=== PATIENT | male | born 1960 | race Caucasian/White ===

== ENCOUNTER 2022-08-09 13:33 | Observation (INO) | payer MEDICARE, SELFPAY ==
[2022-08-09] VITALS (10 sets, daily range): BP systolic 154–201; BP diastolic 84–115; PULSE 71–102; RESP 14–24; TEMP 36.6–36.9; O2SAT 93–98; BMI 29.2
--- NOTE | 2022-08-09 13:42 | ECG_ITS ---
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 Measurements Intervals [place] Rate: 84 P: 46 KS: 150 QRS: 46 QRSD: 152 T: -5 QT: 404 QTc: 479 Interpretive Statements SINUS RHYTHM POSSIBLE LEFT ATRIAL ENLARGEMENT [-0.1mV P-WAVE IN V1/V2] INDETERMINATE AXIS RIGHT BUNDLE BRANCH BLOCK [120+ ms QRS DURATION, UPRIGHT V1, 40+ ms S IN I/aVL/V4/V5/V6] Compared to ECG 01/31/2015 10:48:32 Indeterminate axis now present Right bundle-branch block now present Electronically Signed On 08-09-2022 20:24:14 CDT by Rubi Juan M.D. [id number] f
--- NOTE | 2022-08-09 14:00 | PC.NURSE ---
Pt has not taken his BP meds in 3-4 days, he got pain in the center of his chest after working in the yard today
--- NOTE | 2022-08-09 14:09 | W.ED.CHESTPA ---
HPI - Chest Pain General: Chief Complaint: Chest Pain Stated Complaint: Chest Pain Time Seen by Provider: 08/09/22 13:41 Source: patient and family Mode of arrival: EMS History of Present Illness: This patient presents to our emergency department because of chest pain symptoms. He states that chest pain symptoms began today earlier today. He states they were central in nature with some radiation to his left arm. Similar but much less than that he is experienced in the past. He relates he has had 2 prior episodes of chest pain that resulted in stent placement the last greater than 4 years ago. He states he has been symptom-free up until today. He states his symptoms have now improved after nitroglycerin that was administered prior to arrival. He also received 324 mg of aspirin prior to arrival. He still smokes tobacco but denies alcohol use. He denies any recent cough fever or other constitutional complaints. He states that he has been out of his usual medications since Sunday. He apparently attempted to refill his medicines and was told he needed to follow-up with his doctor which he is not arranged at this point. MD complaint: chest pain Pertinent past history: coronary artery disease Associated symptoms: Reports dyspnea; Deny abdominal pain, fever(s), nausea, palpitations, syncope or vomiting Risk Factors: Coronary artery disease risk factors: smoking history and hypertension Review of Systems Const: Denies: fever(s) or chills Eyes: Denies: change in vision ENMT: Denies: throat pain, odynophagia, hoarseness, nasal discharge or nasal congestion Card: Denies: palpitations, syncope or pre-syncope Resp: Reports: dyspnea; Denies: productive cough or non-productive cough GI: Denies: abdominal pain, nausea, vomiting or hematemesis : Denies: flank pain, difficulty urinating or dysuria Musc: Denies: neck pain, back pain, extremity pain or extremity swelling Skin/Breast: Denies: rash, pruritus or erythema Neuro: Denies: headache(s), numbness in extremities, weakness in extremities, Slurred speech present or difficulty communicating thoughts Psych: Denies: anxiety, depression or mood swings Endo: Denies: polyuria, polydipsia or tired all the time Johann/Lymph: Denies: easy bruising All/Imm: Denies: urticaria or throat swelling Physical Exam Narrative: EXAM NARRATIVE: Patient is alert cooperative and appears to be in no acute distress. Const: COMMON NORMALS: no acute distress and patient oriented x3 GENERAL APPEARANCE: cooperative and comfortable HENMT: COMMON NORMALS: normocephalic, Normal nasal mucous membranes and turbinates present, moist oral mucous membranes and oropharynx normal HEAD & SCALP: normocephalic FACE & SINUS: normal facial exam NOSE: Normal nasal mucous membranes and turbinates present Eye: COMMON NORMALS: Equal, round and reactive pupils present, EOMs intact bilaterally and conjunctivae normal CONJUNCTIVA: Yes conjunctivae normal PUPIL: Yes Equal, round and reactive pupils present Neck/C-Spine: COMMON NORMALS: full ROM, no lymphadenopathy and No carotid bruits Chest: COMMONS NORMALS: normal inspection of the chest and normal palpation of entire chest wall Resp: COMMON NORMALS: normal respiratory effort, No retractions, No use of accessory muscles and clear to auscultation bilaterally AUSCULTATION: clear to auscultation bilaterally Cardio: COMMON NORMALS: regular rate, regular rhythm and No murmurs present (Cardio) RATE: regular rate RHYTHM: regular rhythm GI: COMMON NORMALS: Normal to inspection, nondistended, normoactive bowel sounds present, Soft to palpation and non-tender PALPATION: Yes Soft to palpation : COMMON NORMALS: Yes no CVA tenderness BLADDER/KIDNEY EXAM: Yes no CVA tenderness Back/Pelvis: COMMON NORMALS: no CVA tenderness, thoracic and lumbar spine normal to inspection and no thoracic nor lumbar tenderness Extremity: COMMON NORMALS: normal to inspection, full ROM, capillary refill normal and no calf tenderness Neuro: COMMON NORMALS: patient oriented x3, moves all extremities, no focal motor deficits and gait normal CRANIAL NERVES: Yes CN normal except as noted SPEECH: speech normal Psych: COMMON NORMALS: mental status grossly normal Skin: COMMON NORMALS: no rashes or lesions noted and turgor normal GENERAL SKIN EXAM: no rashes or lesions noted and turgor normal Course Reevaluation(s): Reevaluation #1: Patient denies any ongoing chest pain at this time. His delta troponin has doubled. He has no evidence of ongoing ischemic changes on his EKG. It appears that he has potential for ACS and I think warrants placement and observation. Will discuss with cardiology as well the hospitalist. Time: 18:17 Consultations: Consultation #1: Kelly with Dr. Darden on-call motor vehicle light assembler who agreed to consult and made some treatment recommendations. Time: 19:08 Consultation #2: Discussed with Dr. Cook who agreed to admission. Time: 19:11 Vital Signs: Vital signs: Vital Signs Temperature 97.8 F 08/09/22 13:39 Pulse Rate 75 08/09/22 18:31 Respiratory Rate 14 08/09/22 18:31 Blood Pressure 173/89 08/09/22 18:31 Pulse Oximetry 95 08/09/22 18:31 Oxygen Delivery Me thod 08/09/22 13:57 MDM - Chest Pain Medical Decision Making Patient with known coronary disease who presented to the emergency department with chest pain that was similar to but less intense than his previous chest pains he has had with stents placed the last being greater than 4 years ago. Of note that he was initially hypertensive on arrival likely related the fact he has been out of his antihypertensives for the last several days. On evaluation here he was found to be clinically stable albeit hypertensive and after evaluation was noted to have a rising high-sensitivity troponin. He did remain pain-free. Because of the rising troponin, history of coronary disease it was felt that he would be best served by placing in the hospital for further evaluation of acute coronary syndrome. Lab Data I reviewed the patient's lab results. : 08/09/22 15:00 08/09/22 15:00 Radiology Impressions Chest X-Ray 08/09/22 14:53 Impression: Atherosclerosis. Laboratory Results WBC 7.9 10^3/uL (4.0-10.0) 08/09/22 15:00 RBC 4.78 10^6/uL (4.1-5.3) 08/09/22 15:00 Hgb 14.5 g/dL (11.7-16.6) 08/09/22 15:00 Hct 42.0 % (42.0-52.0) 08/09/22 15:00 MCV 87.9 fl (80-94) 08/09/22 15:00 MCH 30.3 pg (28.0-34.0) 08/09/22 15:00 MCHC 34.5 g/dL (30.0-36.0) 08/09/22 15:00 RDW 13.4 % (12.1-15.1) 08/09/22 15:00 Plt Count 225 10^3/cmm (130-400) 08/09/22 15:00 MPV 10.7 fL (7.4-10.4) H 08/09/22 15:00 Neut % (Auto) 71.6 % 08/09/22 15:00 Lymph % (Auto) 18.2 % 08/09/22 15:00 Ransom % (Auto) 7.1 % 08/09/22 15:00 Eos % (Auto) 2.4 % 08/09/22 15:00 Baso % (Auto) 0.6 % 08/09/22 15:00 Neut # (Auto) 5.62 10^3/uL (1.8-7.7) 08/09/22 15:00 Lymph # (Auto) 1.4 10^3/uL (0.8-4.8) 08/09/22 15:00 Ransom # (Auto) 0.6 10^3/uL (0.2-0.9) 08/09/22 15:00 Eos # (Auto) 0.2 10^3/uL (0.0-0.8) 08/09/22 15:00 Baso # (Auto) 0.1 10^3/uL (0.0-0.1) 08/09/22 15:00 Nucleated RBC % (auto) 0 % 08/09/22 15:00 Nucleated RBCs # 0.0 /100WBC 08/09/22 15:00 Sodium 139 mmol/L (136-145) 08/09/22 15:00 Potassium 3.9 mmol/L (3.5-5.1) 08/09/22 15:00 Chloride 103 mmol/L (98-107) 08/09/22 15:00 Carbon Dioxide 27 mmol/L (22-29) 08/09/22 15:00 Anion Gap 12.9 (5-19) 08/09/22 15:00 BUN 17 mg/dL (8-23) 08/09/22 15:00 Creatinine 1.1 mg/dL (0.7-1.2) 08/09/22 15:00 GFR Calculation 67.6 mL/min (90-130) L 08/09/22 15:00 Glucose 82 mg/dL (65-115) 08/09/22 15:00 Calculated Osmolality 289 mOsm/kg (285-295) 08/09/22 15:00 Calcium 9.0 mg/dL (8.5-10.5) 08/09/22 15:00 Total Bilirubin 0.2 mg/dL (0.15-1.2) 08/09/22 15:00 AST 17 U/L (0-40) 08/09/22 15:00 ALT 13 U/L (0-41) 08/09/22 15:00 Alkaline Phosphatase 56 U/L (40-130) 08/09/22 15:00 Troponin T Baseline 31 ng/L (0-15) H 08/09/22 15:00 Troponin T 120 Minute 55.09 ng/L (0-15) H 08/09/22 16:49 Delta Troponin T 24.09 ABS# (0-10) H* 08/09/22 16:49 Total Protein 5.8 g/dL (6.6-8.7) L 08/09/22 15:00 Albumin 3.2 g/dL (3.5-5.2) L 08/09/22 15:00 Globulin 2.6 g/dL (1.3-4.6) 08/09/22 15:00 EKG Data EKG 1: I personally reviewed and interpreted this EKG as follows: Interpretation: Initial resting EKG reveals ventricular rate of 84 bpm. Has normal MN interval QRS duration and QTC duration. His QRS is appearance consistent with a right bundle branch block. No acute ST-T wave changes noted at this time.No prior tracings available within our system. EKG 2: I personally reviewed and interpreted this EKG as follows: Interpretation: EKG #2 this visit reveals ventricular rate of 73 bpm with normal MN interval normal QRS duration and QTc interval. Still has QRS is consistent with a right bundle branch block without any evidence of acute change from prior tracing. Discharge Plan Discharge Patient Disposition: Placed in Observation Clinical Impression: ACS (acute coronary syndrome), Chronic hypertension Coding Level of Care Code ED Nurse Assistant for Samg Fwd Exam Comprehensive
--- NOTE | 2022-08-09 14:53 | XR_ITS ---
WS: [id number] Portable AP upright chest, 08/09/2022 Clinical Data: cp Comparison: PA and lateral chest, 01/31/2015. Findings: No nodules, masses or effusions are seen. The heart is normal. The pulmonary vascularity is not increased. No pneumonia or pneumothorax is seen. The aortic arch and descending thoracic aorta s how mild tortuosity. There are monitor leads on the chest wall. XR/XR chest 1V portable [id number] Impression: Atherosclerosis.
[2022-08-09 15:05] LABS: Basophils # 0.1 10^3/uL (0.0-0.1); Basophils % 0.6 %; Eosinophils # 0.2 10^3/uL (0.0-0.8); Eosinophils % 2.4 %; Hemoglobin 14.5 g/dL (11.7-16.6); Lymphocytes # 1.4 10^3/uL (0.8-4.8); Lymphocytes % 18.2 %; Mean Corpuscular HGB Conc 34.5 g/dL (30.0-36.0); Mean Corpuscular Hemoglobin 30.3 pg (28.0-34.0); Mean Corpuscular Volume 87.9 fl (80-94); Mean Platelet Volume 10.7 fL (7.4-10.4); Monocytes # 0.6 10^3/uL (0.2-0.9); Monocytes % 7.1 %; Neutrophils # 5.62 10^3/uL (1.8-7.7); Neutrophils % 71.6 %; Nucleated Red Blood Cells % 0 %; Platelet Count 225 10^3/cmm (130-400); Red Blood Count 4.78 10^6/uL (4.1-5.3); Red Cell Distribution Width 13.4 % (12.1-15.1); White Blood Count 7.9 10^3/uL (4.0-10.0)
[2022-08-09 15:30] LABS: Alanine Aminotransferase 13 U/L (0-41); Albumin Level 3.2 g/dL (3.5-5.2); Alkaline Phosphatase 56 U/L (40-130); Anion Gap 12.9 (5-19); Aspartate Amino Transferase 17 U/L (0-40); Blood Urea Nitrogen 17 mg/dL (8-23); Carbon Dioxide 27 mmol/L (22-29); Chloride 103 mmol/L (98-107); Globulin 2.6 g/dL (1.3-4.6); Glomerular Filtration Rate 67.6 mL/min (90-130); Glucose 82 mg/dL (65-115); Osmolality Calculated 289 mOsm/kg (285-295); Potassium 3.9 mmol/L (3.5-5.1); Sodium 139 mmol/L (136-145); Total Bilirubin 0.2 mg/dL (0.15-1.2); Total Protein 5.8 g/dL (6.6-8.7)
[2022-08-09 15:31] LABS: Troponin(5th) Baseline 31 ng/L (0-15)
--- NOTE | 2022-08-09 17:07 | ECG_ITS ---
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 Measurements Intervals [place] Rate: 73 P: 38 FL: 163 QRS: -47 QRSD: 156 T: -15 QT: 426 QTc: 470 Interpretive Statements SINUS RHYTHM INDETERMINATE AXIS RIGHT BUNDLE BRANCH BLOCK Compared to ECG 08/09/2022 13:42:33 No significant changes Electronically Signed On 08-09-2022 20:36:04 CDT by Rubi Juan M.D. [id number]
[2022-08-09 17:44] LABS: Troponin 5 2HR 55.09 ng/L (0-15)
[2022-08-09 18:04] LABS: Troponin 5 2HR Delta 24.09 ABS# (0-10)
--- NOTE | 2022-08-09 19:14 | USCV_ITS ---
Kevin Griffin Age: 62 Gender: M : 1960 Exam Date: 08/09/2022 22:47 Ordering Phys: Clint Kramer DO Technologist: SHAYLEE [place] [facility] [place]: ACS. History of CAD s/p cardiac stenting 2007, 2009. Hx NSTEMI 2009 BP: 198 / 108 HR: 90 Rhythm: Sinus but irregular Technical Quality: Adequate MEASUREMENTS (Male / Female) Normal Values 2D ECHO LV Diastolic Diameter PLAX 4.0 cm 4.2 - 5.9 / 3.9 - 5.3 cm LV Systolic Diameter PLAX 2.8 cm IVS Diastolic Thickness 1.7 cm 0.6 - 1.0 / 0.6 - 0.9 cm IVS Systolic Thickness 1.7 cm LVPW Diastolic Thickness 1.7 cm 0.6 - 1.0 / 0.6 - 0.9 cm LVPW Systolic Thickness 1.7 cm LVOT Diameter 2.4 cm LV Ejection Fraction 2D Teich 57.9 % LV Ejection Fraction MOD 2C 54.4 % LV Ejection Fraction 2C AL 60.0 % LA Diameter 3.7 cm LA Width 3.9 cm LA Height 5.7 cm RA Width 3.9 cm RA Height 4.0 cm Aorta at Sinotubular Diameter 3.0 cm IVC Diameter 1.6 cm M-MODE Aortic Annulus Diameter 3.0 cm LA Ao Ratio MM 1.2 MV E Point Septal Separation 0.4 cm DOPPLER AV Peak Velocity 118.0 cm/s LVOT Peak Velocity 83.0 cm/s AV Area Cont Eq vti 4.2 cm squared AV Area Cont Eq pk 3.1 cm squared MV Peak Velocity 120.0 cm/s MV Area PHT 2.5 cm squared Mitral E to A Ratio 0.7 MV E' Velocity 46.5 cm/s Mitral E to MV E' Ratio 12.1 Mitral E to LV E' Lateral Ratio 14.5 Mitral E to LV E' Septal Ratio 10.5 TR Peak Velocity 234.3 cm/s TR Peak Gradient 22.0 mmHg TV Peak E Velocity 57.0 cm/s Right Atrial Pressure 5.0 mmHg Pulmonary Artery Systolic Pressu 27.0 mmHg PV Peak Velocity 131.0 cm/s RV Acceleration Time 0.1 s RV Ejection Time 0.3 s RV AcT/ET 0.2 FINDINGS Left Ventricle Normal left ventricular size and systolic function, EF 60 %. Moderate left ventricular hypertrophy. Grade I/IV diastolic dysfunction (abnormal relaxation filling pattern), normal to mildly elevated filling pressures. Dyskinetic basal inferior wall segment Right Ventricle The right ventricle is normal in size and function. Right Atrium The right atrium is normal in size. Left Atrium The left atrium is normal in size. Mitral Valve Thickened mitral valve. Mild mitral annular calcification. Mild mitral valve regurgitation. Aortic Valve Thickened aortic valve. Tricuspid Valve Trace tricuspid valve regurgitation. Pulmonic Valve No gross abnormalities noted Pericardium Normal pericardium without effusion. Aorta Normal aortic annulus size. IVC Normal inferior vena cava. CONCLUSIONS Normal left ventricular size and systolic function, EF 60 %. Moderate left ventricular hypertrophy. Grade I/IV diastolic dysfunction (abnormal relaxation filling pattern), normal to mildly elevated filling pressures. Dyskinetic basal inferior wall segment. Thickened mitral valve. Mild mitral annular calcification. Mild mitral valve regurgitation. Thickened aortic valve. Trace tricuspid valve regurgitation. There is no pericardial effusion. There are no intracardiac masses. No previous study is available for comparison. Dr Demond Darden MD FACC (Electronically Signed) Final Date: 10 August 2022 07:30 S
[2022-08-09] MEDS: clopidogrel 300 mg Tablet PO (20:22)
[2022-08-09] MEDS: amlodipine 10 mg Tablet PO (20:22)
--- NOTE | 2022-08-09 20:29 | P.CONIM_ITS ---
Providers/Reason For Consult Consulting Physician/Specialty*: LADONNA Darden MD/cardiology Reason for Consult*: Patient with chest pain and elevated troponin T Requesting Physician: Dr. Byrne Attending Physician: Dr. Byrne History of Present Illness History of Present Illness Kevin Griffin is a 62 year old male with a history of coronary artery disease, status post myocardial infarction x2, status post PCI, is presenting with complaints of a prolonged episode of chest pain. He was found to have elevated blood pressure and troponin T. Cardiology consult is requested for further ca ia evaluation recommendations. This patient is known to have atherosclerotic heart disease and had 2 myocardial infarction's in the past. He had a angiogram followed by PCI of the circumflex artery in 2009. In September 2012, he presented with unstable anginal symptoms. At that time, he had a repeat angiogram which revealed patent circumflex artery stent with a high-grade lesion in the mid RCA for which he underwent PCI. According the patient, he been doing okay since then with no recurrence of chest pain or any specific cardiac symptoms. 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 While being there, he had a CVA. [facility], he had an intracerebral bleed from? an aneurysm. However he did not have any aneurysm intervention, as far as the patient can remember. He was told that he may never be able to walk again. He had weakness of the left upper and lower extremity. However after the rehab exercise, he gained almost full function of the right right upper extremity. He has some weakness of the right lower extremity. He also has some cognitive impairment. He has a history of high blood pressure and dyslipidemia. He ran out of all his medications 4 days ago. He was supposed to call his primary care doctor's office, which has not been done yet. He continues to smoke half pack a day and has been smoking for the last 40+ years. No alcohol abuse or any other substance abuse. He started having chest pain around 1245 today. He took 1 sublingual nitro which gave him some relief. Because of the persistence of the pain, he called the ambulance. He was given 1 sublingual nitro spray and 4 baby aspirin in the ambulance. The intensity of the pain came down from 7/10 to 4/10. He was given 8/3 nitro in the ambulance. His chest pain completely resolved in the emergency room. It took almost 3 hours for the symptoms to completely subside. At the time of my examination, patient is pain-free. According him, this is the first time that he has the chest pain since his last PCI in 2011. He came back to [place] approximately 3 years ago. He is lives alone. He has a sister who lives nearby. He has 2 children and they live somewhere else. Review of Systems Narrative: CONSTITUTIONAL: No fever or chills. EYES: No blurring of vision or other visual disturbances lately. ENT: No hoarseness of voice, auditory disturbances or sore throat. CARDIOVASCULAR: As mentioned above. RESPIRATORY: No significant cough. GASTROINTESTINAL: No hematemesis or melena. GENITOURINARY: No dysuria or hematuria. INTEGUMENTARY: No skin rashes or history of skin cancer. NEURO: As mentioned above. History of hemorrhagic CVA. Residual right lower extremity weakness and cognitive dysfunction. PSYCHIATRIC: No history of psychosis or major depression. HEMATOLOGIC: No bleeding disorders or significant anemia. ENDOCRINE: No history of polyuria or polydipsia. MUSCULOSKELETAL: No recent joint pain or swelling. ALLERGY/IMMUNOLOGY: As mentioned above. Medications/Allergies Home Medications Medication Instructions Recorded Confirmed Last Taken Type amlodipine 10 mg tablet 10 mg PO DAILY@182908/09/22 08/09/22 08/04/22 History aspirin 81 mg tablet,delayed 81 mg PO DAILY@182908/09/22 08/09/22 3 Days Ago History release ~08/06/22 atorvastatin 80 mg tablet (Lipitor) 80 mg PO DAILY@182908/09/22 08/09/22 Unknown History hydrochlorothiazide 25 mg tablet 25 mg PO DAILY@182908/09/22 08/09/22 Unknown History lisinopril 40 mg tablet 40 mg PO DAILY@182908/09/22 08/09/22 Unknown History Allergies Allergy/AdvReac Type Severity Reaction Status Date / Time No Known Allergies Allergy Verified 08/09/22 14:12 PFSH Acute PFSH: Medical History History of coronary artery disease History of hypertension Surgical History History of heart artery stent Social History Smoking and tobacco status: current every day smoker Alcohol intake: never Substance/Drug Use: never Vitals/I&O/Wt Last Vital Signs Temp 97.8 F 08/09/22 13:39 Pulse 75 08/09/22 18:31 Resp 14 08/09/22 18:31 BP 173/89 08/09/22 18:31 Pulse Ox 95 08/09/22 18:31 O2 Del Method 08/09/22 13:57 Weight last 48 hrs Weight 181 lb Physical Exam Narrative: GENERAL: The patient is alert and oriented times three. Not in any acute distress. HEENT: No significant pallor, icterus or lymphadenopathy.Oral cavity: There are no mucous membrane lesions. The fundus is not visualized NECK: Trachea appears to be central. No masses noted. No JVD or thyromegaly appreciated. RESPIRATORY: Chest is symmetrical. No intercostals muscle retraction or any accessory muscle activation. There is no chest wall tenderness. Breath sounds a re heard bilaterally. No rales or rhonchi heard. No evidence of any consolidation. BREASTS: Deferred. HEART: The heart sounds are normal. No S3 or S4. No significant murmurs. No pericardial rub ABDOMEN: No vessel pulsations or distention. No tenderness. No organomegaly appreciated. Bowel sounds are normally heard. : Deferred. RECTAL: Deferred. LYMPHATIC: No lymphadenopathy noted in the neck. EXTREMITIES: No edema or cyanosis. No clubbing. MUSCULOSKELETAL: No acute joint deformities or swelling SKIN: There are no significant rashes or ecchymosis NEUROPSYCHIATRIC: The patient is alert and oriented x3. Appears to be in a good mood. No tremors or rigidity noted. Data : 08/09/22 15:00 08/09/22 15:00 EKG 1: My Interpretation: Normal sinus rhythm with a rate of 73 bpm. Right bundle branch block pattern. Nonspecific T wave changes in the inferior leads. EKG computer-generated impression: Chest X-Ray 08/09/22 14:53 Atherosclerotic changes in the aorta Normal cardiac silhouette. No lung infiltrates. No acute pathology noted. A&P Assessment and plan (1) Atherosclerotic heart disease of [place] coronary artery with unstable angina pectoris: Patient's symptoms also history of an unstable angina complicated with a non-ST elevation myocardial infarction. Currently he seems to be stable and pain-free. The EKG changes are nonspecific. His LV function is not known. He may be treated with the subcu Lovenox, aspirin, Plavix and onli-cwz-ozjsgcg medications. Status: Acute (2) Accelerated hypertension: His blood pressures are stage II. He may be restarted on his previous medications. I may add a beta-katelin to his current medications. He needs to be closely monitored on telemetry. Status: Acute (3) Dyslipidemia: May continue on the current medications. Status: Acute (4) History of cerebrovascular accident (CVA) with residual deficit: The details of the intracerebral bleed is not known at this time. According the patient, he had an aneurysm. Possibility of recurrence of CVA is a concern. This was discussed with the patient and his sister in detail which he understood well. A CTA of the head would be appropriate to evaluate for any aneurysm. Consider starting him on Lovenox after the CTA. He may be treated with the Plavix, aspirin and other symptomatic measures for the time being. Status: Acute Plan Based on the results of the above tests and the patient's clinical progress, further recommendations will be made. Thank you for the opportunity to follow this patient make these recommendations. Discussed with Dr. Byrne about my complete clinical impression and recommendations. Consult Attestations Medical Necessity Statement: Patient requires continued hospital stay for close monitoring and further management Coding Level of Care Code Acute Director Account Management for Luther Shea History Detailed Exam Detailed Medical Decision Making High Complexity Diagnoses Atherosclerotic heart disease of [place] coronary artery with unstable angina pectoris I25.110 Accelerated hypertension I10 Dyslipidemia E78.5 History of cerebrovascular accident (CVA) with residual deficit I69.30
--- NOTE | 2022-08-09 20:47 | P.HP_ITS ---
Providers/Chief Complaint Chief Complaint: Chest Pain History of Present Illness Kevin Griffin is a 62 year old male with a past medical history of hypertension, CAD, history of stent to left circumflex, history of stent to RCA, who has not taken his medication for the last few days, as he was out of them, presents to [facility] for chest pain. Patient with chest pain today, s ubsternal, radiating to the left arm, he has had 2 episodes of chest pain, associate with shortness of breath, nonradiating, no nausea, no vomiting. He denies any prior history of chest pain, he does take aspirin 81 mg once daily. Does report smoking. No drug use. Review of Systems Const: Denies: fever(s) Card: Reports: chest pain Resp: Denies: dyspnea Medications/Allergies Home Medications Medication Instructions Recorded Confirmed Last Taken Type amlodipine 10 mg tablet 10 mg PO DAILY@182908/09/22 08/09/22 08/04/22 History aspirin 81 mg tablet,delayed 81 mg PO DAILY@182908/09/22 08/09/22 3 Days Ago History release ~08/06/22 atorvastatin 80 mg tablet (Lipitor) 80 mg PO DAILY@182908/09/22 08/09/22 Unknown History hydrochlorothiazide 25 mg tablet 25 mg PO DAILY@182908/09/22 08/09/22 Unknown History lisinopril 40 mg tablet 40 mg PO DAILY@182908/09/22 08/09/22 Unknown History Allergies Allergy/AdvReac Type Severity Reaction Status Date / Time No Known Allergies Allergy Verified 08/09/22 14:12 PFSH Acute PFSH: Medical History (Updated 08/09/22 @ 20:50 by Og Byrne MD) History of coronary artery disease History of hypertension Surgical History (Updated 08/09/22 @ 20:50 by Og Byrne MD) History of heart artery stent Social History (Updated 08/09/22 @ 20:50 by Og Byrne MD) Smoking and tobacco status: current every day smoker Alcohol intake: never Substance/Drug Use: never Vitals/I&O/Wt Last Vital Signs Temp 97.8 F 08/09/22 13:39 Pulse 75 08/09/22 18:31 Resp 14 08/09/22 18:31 BP 173/89 08/09/22 18:31 Pulse Ox 95 08/09/22 18:31 O2 Del Method 08/09/22 13:57 Weight last 48 hrs Weight 82.1 kg Physical Exam Const: COMMON NORMALS: no acute distress and patient oriented x3 HENMT: COMMON NORMALS: normocephalic HEAD & SCALP: normocephalic Neck/C-Spine: COMMON NORMALS: no JVD Resp: COMMON NORMALS: normal respiratory effort, No retractions, No use of accessory muscles and clear to auscultation bilaterally AUSCULTATION: clear to auscultation bilaterally Cardio: COMMON NORMALS: no JVD, regular rate, regular rhythm, S1 normal heart sound present and S2 normal heart sound present RATE: regular rate RHYTHM: regular rhythm HEART SOUNDS: S1 normal heart sound present and S2 normal heart sound present GI: COMMON NORMALS: Normal to inspection, nondistended, normoactive bowel sounds present, Soft to palpation, non-tender, No hepatosplenomegaly present, no masses and no bruits PALPATION: Yes Soft to palpation and Yes No hepatosplenomegaly present Extremity: COMMON NORMALS: capillary refill normal, no clubbing, cyanosis or edema, no calf tenderness and no pedal edema Neuro: COMMON NORMALS: patient oriented x3, CN's II-XII intact bilaterally and moves all extremities Psych: COMMON NORMALS: mental status grossly normal Data : 08/09/22 15:00 08/09/22 15:00 A&P Assessment and plan (1) ACS (acute coronary syndrome): Status: Acute Plan Chest pain -With positive delta troponin -Serial EKGs closer towards, telemetry monitoring -Will be consulted, Dr. Darden to see -Received 325 prior to arrival, received Plavix here in the emergency room -Cardiac echo -Nitroglycerin for chest pain -Continue Coreg -Telemetry monitoring, monitor for chest pain -N.p.o. midnight -Lovenox for DVT prophylaxis Attestations Medical Necessity Statement*: Patient requires hospitalization, outpatient observation, for chest pain Coding Level of Care Code Acute Montessori Lead Teacher for Luther Shea Diagnoses ACS (acute coronary syndrome) I24.9
--- NOTE | 2022-08-09 20:53 | ECG_ITS ---
[facility] Test Date: 2022-08-09 Pat Name: Kevin Griffin Department: Room: Gender: Male Casino Host: : 1960 Requested By: Clint Kramer Order Number: [id number] Ramirez MD: Rubi Juan M.D. Measurements Intervals [place] Rate: 92 P: 59 ND: 158 QRS: 71 QRSD: 161 T: -13 QT: 403 QTc: 499 Interpretive Statements SINUS RHYTHM WITH FREQUENT VENTRICULAR PREMATURE COMPLEXES POSSIBLE LEFT ATRIAL ENLARGEMENT INDETERMINATE AXIS RIGHT BUNDLE BRANCH BLOCK Compared to ECG 08/09/2022 17:07:43 Ventricular premature complex(es) now present Electronically Signed On 08-10-2022 8:29:16 CDT by Rubi Juan M.D. [email or web address]/[id number]
[2022-08-09 21:14] LABS: NT Pro B Type Natriuretic Pept 498 pg/mL (0-125)
--- NOTE | 2022-08-09 21:33 | CTR_ITS ---
PROCEDURE INFORMATION: Exam: CTA Head With Contrast, Arteriography Exam date and time: 08/09/2022 9:47 PM Age: 62 years old Clinical indication: Prior surgery; Surgery type: Coronary stent; Patient HX: Hypertensive 201/115. History of hemorrhage with aneurysm. ; Additional info: HX of brain bleed, aneurysm TECHNIQUE: Imaging protocol: Computed tomographic angiography of the head with contrast. Exam focused on the arteries. 3D rendering (Not supervised by radiologist): MIP and/or 3D reconstructed images were created by the technologist. Radiation optimization: All CT scans at this facility use at least one of these dose optimization techniques: automated exposure control; mA and/or kV adjustment per patient size (includes targeted exams where dose is matched to clinical indication); or iterative reconstruction. Contrast material: OMNI 350; Contrast volume: 95 ml; Contrast route: INTRAVENOUS (IV); COMPARISON: 1. CT head wo con* [id number] 2022-08-09 21:44 2. CR XR chest 1V portable [id number] 2022-08-09 15:09 RADIATION DOSE METRICS: Total DLP (mGy-cm): 464.02 FINDINGS: ANTERIOR CIRCULATION: Right internal carotid artery: Mild right ICA atherosclerotic calcifications. Right middle cerebral artery: Moderate right MCA stenosis M1 segment. Right anterior cerebral artery: Aplastic right SHERWIN A1 segment with the A2 segment through supplied through the anterior communicating artery. Left internal carotid artery: Intracranial segment is patent with no significant stenosis. No aneurysm. Left middle cerebral artery: No occlusion or significant stenosis. No aneurysm. Left anterior cerebral artery: No occlusion or significant stenosis. No aneurysm. POSTERIOR CIRCULATION: Right vertebral artery: No occlusion or significant stenosis. No aneurysm. Left vertebral artery: No occlusion or significant stenosis. No aneurysm. Basilar artery: Mild basilar artery atherosclerotic narrowing. Right posterior cerebral artery: No occlusion or significant stenosis. No aneurysm. Left posterior cerebral artery: No occlusion or significant stenosis. No aneurysm. Left posterior communicating artery: 2 mm infundibulum, less likely aneurysm at the left posterior communicating artery origin. Cavernous Sinus: The cerebral dural venous sinuses are patent. Brain: No definite mass, mass effect, or midline shift. Cerebral ventricles: No ventriculomegaly. Bones/joints: Unremarkable. No acute fracture. Soft tissues: Unremarkable. PROCEDURE INFORMATION: Exam: CTA Neck With Contrast Exam date and time: 08/09/2022 9:47 PM Age: 62 years old Clinical indication: Prior surgery; Surgery type: Coronary stent; Patient HX: Hypertensive 201/115. History of hemorrhage with aneurysm. ; Additional info: HX of brain bleed, aneurysm TECHNIQUE: Imaging protocol: Computed tomographic angiography of the neck with contrast. 3D rendering (Not supervised by radiologist): MIP and/or 3D reconstructed images were created by the technologist. Radiation optimization: All CT scans at this facility use at least one of these dose optimization techniques: automated exposure control; mA and/or kV adjustment per patient size (includes targeted exams where dose is matched to clinical indication); or iterative reconstruction. Contrast material: OMNI 350; Contrast volume: 95 ml; Contrast route: INTRAVENOUS (IV); COMPARISON: 1. CT head wo con* [id number] 2022-08-09 21:44 2. CR XR chest 1V portable [id number] 2022-08-09 15:09 RADIATION DOSE METRICS: Total DLP (mGy-cm): 464.02 FINDINGS: Right common carotid artery: Mild right distal common carotid artery calcifications. Right internal carotid artery: Soft plaque and calcification mildly narrowing the proximal right ICA. Right external carotid artery: No occlusion or stenosis of the origin. Left common carotid artery: Mild distal left common carotid artery calcifications. Left internal carotid artery: Minimal proximal left ICA calcifications. Left external carotid artery: No occlusion or stenosis of the origin. Right vertebral artery: No stenosis. No dissection or occlusion. Left vertebral artery: No stenosis. No dissection or occlusion. Soft tissues: Normal. No significant soft tissue swelling. Bones/joints: No acute fracture. CT/CT angio headneck* [id number] IMPRESSION: 1. Moderate right MCA stenosis M1 segment. 2. Mild basilar artery atherosclerotic narrowing. 3. 2 mm infundibulum, less likely aneurysm at the left posterior communicating artery origin. Correlate with history, otherwise no aneurysm identified. IMPRESSION: Mild proximal ICA stenosis. Widely patent vertebral arteries. REFERENCES: NASCET CRITERIA. The degree of stenosis in the cervical segment of the internal carotid artery is based on NASCET criteria. Normal is no stenosis. Mild is less than 50% stenosis. Moderate is 50-69% stenosis. Severe is 70% to 99% stenosis. Total occlusion is no detectable patent lumen.
--- NOTE | 2022-08-09 21:33 | CTR_ITS ---
PROCEDURE INFORMATION: Exam: CT Head Without Contrast Exam date and time: 08/09/2022 9:44 PM Age: 62 years old Clinical indication: Patient HX: Hypertensive 201/115. History of hemorrhage with aneurysm. ; Additional info: HX of brain aneurysm and blled TECHNIQUE: Imaging protocol: Computed tomography of the head without contrast. Radiation optimization: All CT scans at this facility use at least one of these dose optimization techniques: automated exposure control; mA and/or kV adjustment per patient size (includes targeted exams where dose is matched to clinical indication); or iterative reconstruction. COMPARISON: No relevant prior studies available. RADIATION DOSE METRICS: Total DLP (mGy-cm): 1217.68 FINDINGS: Brain: Large amount of diffuse white matter disease likely reflecting chronic microvascular ischemic changes. Cerebral ventricles: No ventriculomegaly. Paranasal sinuses: Paranasal sinus opacifications. Mastoid air cells: Visualized mastoid air cells are well aerated. Bones/joints: Unremarkable. No acute fracture. Soft tissues: Unremarkable. CT/CT head wo con* [id number] IMPRESSION: 1. Negative for intracranial hemorrhage or mass effect. 2. Large amount of diffuse white matter disease likely reflecting chronic microvascular ischemic changes. 3. Paranasal sinus opacifications.
[2022-08-09] MEDS: iohexol 350 mg/mL 100 mL Btl IV (21:51)
[2022-08-09] MEDS: pantoprazole 40 mg SDV IVP (22:38)
[2022-08-09] MEDS: enoxaparin 40 mg/0.4 mL Syringe SUBCUT (22:39)
[2022-08-09] MEDS: carvedilol 3.125 mg Tablet PO (22:39)
[2022-08-09 22:44] LABS: Troponin 5 6HR 74.19 ng/L (0-15)
[2022-08-09 23:12] LABS: Troponin 5 6HR Delta 43.19 ng/L (0-12)
[2022-08-09 23:23] LABS: Estmated Average Glucose 97
[2022-08-09 23:24] LABS: Chol HDL Ratio 4.55 mg/dL (1.0-5.00); Cholesterol 182 mg/dL (0-200); HDL Cholesterol 40 mg/dL (60-100); LDL Cholesterol Calculated 115 mg/dL (50-129); LDL HDL Ratio 2.88 RATIO (0.00-3.22); Triglycerides 137 mg/dL (0-150)
[2022-08-10] VITALS (35 sets, daily range): BP systolic 132–197; BP diastolic 71–101; PULSE 9–82; RESP 16–22; TEMP 36.3–37.1; O2SAT 90–97
[2022-08-10] MEDS: enoxaparin 40 mg/0.4 mL Syringe SUBCUT ×2 (00:40→19:27)
--- NOTE | 2022-08-10 01:16 | ECG_ITS ---
[facility] Test Date: 2022-08-10 Pat Name: Kevin Griffin Department: Room: 276 Gender: Male Fur Operator: : 1960 Requested By: Og Byrne Order Number: [id number] Ashley MD: Demond Darden M.D. Measurements Intervals [place] Rate: 78 P: 56 RI: 157 QRS: -20 QRSD: 164 T: -17 QT: 434 QTc: 496 Interpretive Statements SINUS RHYTHM WITH OCCASIONAL VENTRICULAR PREMATURE COMPLEXES INDETERMINATE AXIS RIGHT BUNDLE BRANCH BLOCK [120+ ms QRS DURATION, UPRIGHT V1, 40+ ms S IN I/aVL/V4/V5/V6] INTERPRETATION BASED ON A DEFAULT AGE OF 40 YEARS Compared to ECG 08/09/2022 21:04:03 No significant changes Electronically Signed On 08-10-2022 20:46:53 CDT by Demond Darden M.D. [id number] f
[2022-08-10 05:46] LABS: Basophils # 0.1 10^3/uL (0.0-0.1); Basophils % 0.5 %; Eosinophils # 0.3 10^3/uL (0.0-0.8); Eosinophils % 3.4 %; Hematocrit 46.2 % (42.0-52.0); Hemoglobin 15.2 g/dL (11.7-16.6); Lymphocytes # 2.3 10^3/uL (0.8-4.8); Lymphocytes % 22.8 %; Mean Corpuscular HGB Conc 32.9 g/dL (30.0-36.0); Mean Corpuscular Hemoglobin 29.3 pg (28.0-34.0); Mean Platelet Volume 10.9 fL (7.4-10.4); Monocytes # 0.8 10^3/uL (0.2-0.9); Monocytes % 8.4 %; Neutrophils # 6.36 10^3/uL (1.8-7.7); Neutrophils % 64.6 %; Nucleated Red Blood Cells % 0 %; Platelet Count 221 10^3/cmm (130-400); Red Blood Count 5.19 10^6/uL (4.1-5.3); Red Cell Distribution Width 13.5 % (12.1-15.1); White Blood Count 9.9 10^3/uL (4.0-10.0)
[2022-08-10 06:14] LABS: Anion Gap 13.4 (5-19); Blood Urea Nitrogen 14 mg/dL (8-23); Calcium 9.1 mg/dL (8.5-10.5); Carbon Dioxide 28 mmol/L (22-29); Chloride 104 mmol/L (98-107); Glomerular Filtration Rate 75.5 mL/min (90-130); Glucose 86 mg/dL (65-115); Magnesium 2.1 mg/dL (1.7-2.3); Osmolality Calculated 294 mOsm/kg (285-295); Potassium 3.4 mmol/L (3.5-5.1); Sodium 142 mmol/L (136-145)
[2022-08-10] MEDS: carvedilol 3.125 mg Tablet PO (08:01)
[2022-08-10] MEDS: aspirin 81 mg EC Tablet PO (08:01)
--- NOTE | 2022-08-10 08:55 | P.PN_ITS ---
Subjective Subjective: Patient is currently doing okay. He has no chest pain. The 6- hour troponin T has a delta of 43. The echocardiogram revealed dyskinetic basal inferior wall segment. Overall LV ejection fraction is within normal limits. Patient denies any unusual shortness of breath. Medications: Medication Review Details: Current Medications Acetaminophen (Acetaminophen 325 Mg Tablet) 650 mg PO Q6H PRN PRN Reason: Mild/Mod Pain Or Temp >/= 101 Aspirin (Aspirin 81 Mg Ec Tablet) 81 mg PO DAILY [facility] Last Admin: 08/10/22 08:01 Dose: 81 mg Atorvastatin Calcium (Atorvastatin 40 Mg Tablet) 80 mg PO QPM [facility] Carvedilol (Carvedilol 3.125 Mg Tablet) 3.125 mg PO Q12H [facility] Last Admin: 08/10/22 08:01 Dose: 3.125 mg Enoxaparin Sodium (Enoxaparin 80 Mg/0.8 Ml Syringe) 80 mg SUBCUT Q12H [facility] Lisinopril (Lisinopril 20 Mg Tablet) 40 mg PO DAILY@1830 [facility] Morphine Sulfate (Morphine 4 Mg/Ml Sdv 1 Ml) 1 mg IVP Q4H PRN PRN Reason: SEVERE PAIN Naloxone HCl (Naloxone 0.4 Mg/Ml Sdv) 0.1 mg IVP Q2M PRN PRN Reason: OPIATERV Nitroglycerin (Nitroglycerin 0.4 Mg Sublingual Tablet) 0.4 mg SUBLINGUAL Q5M PRN PRN Reason: CHEST PAIN Ondansetron HCl (Ondansetron 2 Mg/Ml Sdv 2 Ml) 4 mg IVP Q8H PRN PRN Reason: vomiting, or N/V if npo Pantoprazole Sodium (Pantoprazole 40 Mg Sdv) 40 mg IVP Q24H [facility] Last Admin: 08/09/22 22:38 Dose: 40 mg Vitals/I&O/Wt Last Vital Signs Temp 98.0 F 08/10/22 07:25 Pulse 80 08/10/22 08:00 Resp 22 H 08/10/22 07:25 BP 168/101 08/10/22 07:25 Pulse Ox 93 08/10/22 08:00 O2 Del Method 08/10/22 08:00 Weight last 48 hrs Weight 181 lb Weight 181 lb Physical Exam Narrative: GENERAL: The patient is alert and oriented times three. Not in any acute distress. HEENT: No significant pallor, icterus or lymphadenopathy.Oral cavity: There are no mucous membrane lesions. NECK: Trachea appears to be central. No masses noted. No JVD or thyromegaly appreciated. RESPIRATORY: Chest is symmetrical. No intercostals muscle retraction or any accessory muscle activation. There is no chest wall tenderness. Breath sounds are heard bilaterally. No rales or rhonchi heard. No evidence of any consolidati on. BREASTS: Deferred. HEART: The heart sounds are normal. No S3 or S4. No significant murmurs. No pericardial rub ABDOMEN: No vessel pulsations or distention. No tenderness. No organomegaly appreciated. Bowel sounds are normally heard. : Deferred. RECTAL: Deferred. LYMPHATIC: No lymphadenopathy noted in the neck. EXTREMITIES: No edema or cyanosis. No clubbing. MUSCULOSKELETAL: No acute joint deformities or swelling SKIN: There are no significant rashes or ecchymosis NEUROPSYCHIATRIC: The patient is alert and oriented x3. Appears to be in a good mood. No tremors or rigidity noted. Data : 08/10/22 05:04 08/10/22 05:04 Other Labs: Laboratory Last Values WBC 9.9 10^3/uL (4.0-10.0) 08/10/22 05:04 RBC 5.19 10^6/uL (4.1-5.3) 08/10/22 05:04 Hgb 15.2 g/dL (11.7-16.6) 08/10/22 05:04 Hct 46.2 % (42.0-52.0) 08/10/22 05:04 MCV 89.0 fl (80-94) 08/10/22 05:04 MCH 29.3 pg (28.0-34.0) 08/10/22 05:04 MCHC 32.9 g/dL (30.0-36.0) 08/10/22 05:04 RDW 13.5 % (12.1-15.1) 08/10/22 05:04 Plt Count 221 10^3/cmm (130-400) 08/10/22 05:04 MPV 10.9 fL (7.4-10.4) H 08/10/22 05:04 Neut % (Auto) 64.6 % 08/10/22 05:04 Lymph % (Auto) 22.8 % 08/10/22 05:04 Dougherty % (Auto) 8.4 % 08/10/22 05:04 Eos % (Auto) 3.4 % 08/10/22 05:04 Baso % (Auto) 0.5 % 08/10/22 05:04 Neut # (Auto) 6.36 10^3/uL (1.8-7.7) 08/10/22 05:04 Lymph # (Auto) 2.3 10^3/uL (0.8-4.8) 08/10/22 05:04 [place]herty # (Auto) 0.8 10^3/uL (0.2-0.9) 08/10/22 05:04 Eos # (Auto) 0.3 10^3/uL (0.0-0.8) 08/10/22 05:04 Baso # (Auto) 0.1 10^3/uL (0.0-0.1) 08/10/22 05:04 Nucleated RBC % (auto) 0 % 08/10/22 05:04 Nucleated RBCs # 0.0 /100WBC 08/10/22 05:04 Sodium 142 mmol/L (136-145) 08/10/22 05:04 Potassium 3.4 mmol/L (3.5-5.1) L 08/10/22 05:04 Chloride 104 mmol/L (98-107) 08/10/22 05:04 Carbon Dioxide 28 mmol/L (22-29) 08/10/22 05:04 Anion Gap 13.4 (5-19) 08/10/22 05:04 BUN 14 mg/dL (8-23) 08/10/22 05:04 Creatinine 1.0 mg/dL (0.7-1.2) 08/10/22 05:04 GFR Calculation 75.5 mL/min (90-130) L 08/10/22 05:04 Glucose 86 mg/dL (65-115) 08/10/22 05:04 Estimat Average Glucose 97 08/09/22 22:02 Hemoglobin A1c 5.0 % (4.0-6.0) 08/09/22 22:02 Calculated Osmolality 294 mOsm/kg (285-295) 08/10/22 05:04 Calcium 9.1 mg/dL (8.5-10.5) 08/10/22 05:04 Magnesium 2.1 mg/dL (1.7-2.3) 08/10/22 05:04 Total Bilirubin 0.2 mg/dL (0.15-1.2) 08/09/22 15:00 AST 17 U/L (0-40) 08/09/22 15:00 ALT 13 U/L (0-41) 08/09/22 15:00 Alkaline Phosphatase 56 U/L (40-130) 08/09/22 15:00 Troponin T Baseline 31 ng/L (0-15) H 08/09/22 15:00 Troponin T 120 Minute 55.09 ng/L (0-15) H 08/09/22 16:49 Delta Troponin T 24.09 ABS# (0-10) H* 08/09/22 16:49 Troponin T Hi Sens 6Hr 74.19 ng/L (0-15) H 08/09/22 22:02 Troponin T Hi Sens 6Hr Delta 43.19 ng/L (0-12) H* 08/09/22 22:02 NT-Pro-B Natriuret Pep 498 pg/mL (0-125) H 08/09/22 20:46 Total Protein 5.8 g/dL (6.6-8.7) L 08/09/22 15:00 Albumin 3.2 g/dL (3.5-5.2) L 08/09/22 15:00 Globulin 2.6 g/dL (1.3-4.6) 08/09/22 15:00 Triglycerides 137 mg/dL (0-150) 08/09/22 22:02 Cholesterol 182 mg/dL (0-200) 08/09/22 22:02 LDL Cholesterol, Calc 115 mg/dL (50-129) 08/09/22 22:02 HDL Cholesterol 40 mg/dL (60-100) L 08/09/22 22:02 LDL/HDL Ratio 2.88 RATIO (0.00-3.22) 08/09/22 22:02 Cholesterol/HDL Ratio 4.55 mg/dL (1.0-5.00) 08/09/22 22:02 TSH 2.20 uIU/mL (0.27-4.20) 08/09/22 22:02 EKG 2: My Interpretation: No sinus rhythm with right bundle branch block. Occasional PVCs. Some nonspecific T wave changes. No significant new changes from yesterday. EKG computer-generated impression: Chest X-Ray 08/09/22 14:53 Impression: Atherosclerosis. Head CT 08/09/22 21:33 IMPRESSION: 1. Negative for intracranial hemorrhage or mass effect. 2. Large amount of diffuse white matter disease likely reflecting chronic microvascular ischemic changes. 3. Paranasal sinus opacifications. Head/Neck CTA 08/09/22 21:33 IMPRESSION: 1. Moderate right MCA stenosis M1 segment. 2. Mild basilar artery atherosclerotic narrowing. 3. 2 mm infundibulum, less likely aneurysm at the left posterior communicating artery origin. Correlate with history, otherwise no aneurysm identified. IMPRESSION: Mild proximal ICA stenosis. Widely patent vertebral arteries. REFERENCES: NASCET CRITERIA. The degree of stenosis in the cervical segment of the internal carotid artery is based on NASCET criteria. Normal is no stenosis. Mild is less than 50% stenosis. Moderate is 50-69% stenosis. Severe is 70% to 99% stenosis. Total occlusion is no detectable patent lumen. Other data: CTA of the head and neck 1. Moderate right MCA stenosis M1 segment. 2. Mild basilar artery atherosclerotic narrowing. 3. 2 mm infundibulum, less likely aneurysm at the left posterior communicating artery origin.? Correlate with history, otherwise no aneurysm identified. A&P Assessment and plan (1) Atherosclerotic heart disease of [place] coronary artery with unstable angina pectoris: Patient's symptoms also history of an unstable angina complicated with a non-ST elevation myocardial infarction. Currently he seems to be stable and pain-free. The EKG changes are nonspecific. In view of his unstable anginal symptoms, in order to further evaluate the coronary status, patient requires a cardiac catheterization. The risk of bleeding, hematoma, vascular injury, myocardial infarction, CVA, renal failure and other concomitant complications were explained in detail. Patient understood this well and consented to proceed. We will go ahead and schedule the test as early as possible. Status: Acute (2) Accelerated hypertension: His blood pressures are stage II. The blood pressure seems to be slowly coming down. We will go ahead and give a amlodipine 5 mg p.o. now. His blood pressure will be closely monitored. Status: Acute (3) Dyslipidemia: May continue on the current medications. Status: Acute (4) History of cerebrovascular accident (CVA) with residual deficit: The details of the intracerebral bleed is not known at this time. According the patient, he had an aneurysm. Possibility of recurrence of CVA is a concern. T his was discussed with the patient and his sister in detail which he understood well. The patient had a CT of the head and neck. There was no evidence of any aneurysm or intracranial bleed. Status: Acute Plan We will go ahead and do the cardiac catheterization this morning. Based on the results, further recommendations will be made Attestations Medical Necessity Statement*: Patient requires continued hospital stay for close monitoring and further management Coding Level of Care Code Acute Power Shovel Mechanic for Chg Fwd History Expanded Problem Focused Exam Expanded Problem Focused Medical Decision Making Moderate Complexity Diagnoses Atherosclerotic heart disease of [place] coronary artery with unstable angina pectoris I25.110 Accelerated hypertension I10 Dyslipidemia E78.5 History of cerebrovascular accident (CVA) with residual deficit I69.30
--- NOTE | 2022-08-10 08:56 | XACV_ITS ---
Exam Room: 2 Ht: 168 cm Wt: 82 kg BSA: 1.98 m2 Gender: Male : 1960 Any Known Allergies: Other Exam Priority: Routine Procedure(s): Procedure Description: Diagnostic procedure Procedure Description: PCI procedure Procedure Description: Left Heart Catheterization Procedure Description: PTCA Procedure Description: Miscellaneous Procedure Description: ACT Procedure Description: Coronary Angiography Adelso MCDONALD; Diagnostic Cath Status: Urgent Diagnostic Findings * The left main is a medium caliber vessel with minimal intimal irregularities. * The left artery descending artery is a medium caliber vessel which appears to taper off to his LV apex. The proximal and mid LAD was found to have mild to moderate diffuse disease. The mid to distal artery was found to have moderate to severe diffuse disease, lesions ranging area from 60 to 90%. The first diagonal branch was found to have around 50 to 60% proximal disease involving the ostium. * The left circumflex artery is a medium caliber vessel. The proximal segment of the artery was found to have around 30 to 40% tubular narrowing. The mid stented segment of the artery was found to have around 20 to 30% diffuse in-stent narrowing. The first 2 obtuse marginal branches were of small caliber vessels with ostial around 60 to 70% stenosis. The third obtuse marginal artery was found to have 50 to 60% diffuse narrowing in the proximal to mid segment. The distal circumflex artery appears to trifurcate. Each of these trifurcation branches were found to have around 50 to 60% diffuse narrowing. * The right coronary artery is a medium caliber vessel which was found to have a long stented area in the proximal to mid segment. The stented segment extends beyond the origin of the first RV branch. Proximal to the RV branch, there was around 50% in-stent narrowing. Right after the origin of the first RV branch, the artery appears to be subtotally occluded. Left to left collaterals are noted filling of the PDA to the RV branch. PCI Status: Urgent PCI Indication: New Onset Angina <= 2 months Interventional Findings * Mid Left Anterior Descendin% stenosis treated with a AB MINI TREK 2.00X20 RX BALLOON. * Interventional procedure detail: Patient had a critical mid LAD stenosis although vessel is small in caliber. Decision was made to perform balloon angioplasty of mid LAD to improve flow. We engaged left main artery using XB 3.0 guide catheter. 0.014 run-through guidewire was used to cross mid LAD stenosis and was put in the distal vessel. IV heparin was administered to maintain ACT above 250 S. We used a 2.0 x 20 mm semicompliant balloon to perform balloon angioplasty. This improved flow significantly. However given small size of the vessel, we decided not to place a stent. At this time guidewire and guide catheter were removed. Final angiogram showed excellent flow, minimal residual stenosis. Patient left the Manager Strategic Marketing in a stable condition. Conclusions 1. This is a 62-year-old white male with history of coronary artery disease, status post myocardial infarction x2, status post PCI of the circumflex and right coronary arteries, history of diabetes, high blood pressure and dyslipidemia, presents with prolonged episode of chest pain and uncontrolled blood pressure. His troponin T was found to be elevated with a delta of 43 at 6 hours. He was found to have dyskinetic basal inferior wall segments by echocardiogram. His EKG changes are nonspecific. In view of his presenting symptoms, history and other abnormal relative findings, in order to further evaluate his coronary status, a cardiac catheterization was recommended. Patient underwent left heart catheterization with selective right coronary angiogram today. The findings are as follows.. 2. 1. Subtotal in-stent occlusion in the proximal to mid right coronary artery with right to right collaterals, filling of the PDA of the right coronary artery. Minimal in-stent narrowing in the circumflex artery. Moderate diffuse disease in the circumflex vessels. Severe diffuse disease in the mid to distal left and descending artery. Mild to moderate diffuse disease in the other vessels. LVEDP of 18 mmHg. Normal LV ejection fraction by echocardiogram. 3. Based on the angiogram findings, the LAD lesion was thought to be the culprit. I reviewed and discussed the cardiac catheterization data in detail withDr. Saeed. It was thought to be appropriate to consider PCI of the LAD lesion, Dr. Saeed concurred with this plan and took over further management this patient. 4. Most significant stenosis was in the mid LAD which had about 90% stenosis. Status post successful revascularization with balloon angioplasty. Stent not placed because of small caliber of the vessel. 5. Mid Left Anterior Descending was treated with a Balloon. Recommendations * Dual antiplatelet therapy. * Aggressive risk factor modification. * High intensity statin therapy. * Outpatient cardiology follow-up in 4 weeks. Interventional RX Recommendation: PCI w/o planned CABG Diagnostic RX Recommendation: PCI w/o planned CABG LV EDP: 18 mmHg Left Ventriculography Findings: * Mammogram was not performed because of the limitations on the dye usage. Pressures Phase:Rest AO : 101 / 83 ( 93 ) @ 11:29:00 AM 137 / 80 ( 103 ) @ 11:33:00 AM 150 / 69 ( 105 ) @ 11:33:00 AM 110 / 77 ( 92 ) @ 11:49:00 AM 108 / 79 ( 96 ) @ 11:53:00 AM LV : 132 / 3 / 18 @ 11:33:00 AM 130 / -2 / 16 @ 11:33:00 AM Valves Phase:DefaultPhase AV : 0.0 @ 11:01:14 AM Clinical Evaluation EBL: 5mL-10mL Procedural Details Procedure Consent Obtained. Admit Source: In Patient. Pre-Procedure Time Out. Identified patient by full name and date of as verbalized by the patient/guarantor. Does the consent match the physician's order: Yes. Accurate & Complete Informed Consent: Yes. Inpatient/Outpatient History & Physical on Chart: Yes. If H&P is completed, is and addenduem needed: N/A; If yes, is the addendum complete: N/A. Visualize and Verify Site with Patient/Guarantor: N/A. Relevant Radiology Images available: N/A. Pre-op teaching completed and patient verbalized understanding. The risks, benefits, and alternatives of sedation and/or procedure were discussed by physician. The patient agrees to continue. Procedure started. [facility] Clinical Fraility Score: 3: Managing Well. Manager Strategic Marketing Indications: New Onset Angina. Chest Pain Symptom Assessment: Typical Angina Symptoms. Correct patient, site and procedure confirmed by cath team. PERRLA. Strong, equal hand assembler mechanical ordnance bilaterally. Lungs clear x 5 lobes. Current diagnosis: Chest Pain. IV Site on Arrival: 18 gauge in the left anticubital. IV Fluids: 0.9% NaCl at KVO. 0 mL infused prior to photo lab specialist. Pre Procedural Pulses: bilateral radial was 2+. Pre Procedural Pulses: bilateral dorsalis pedis was 2+. Oxygen started at 2liters/min via nasal canula. right groin was prepped with chloroprep then draped in the usual sterile fashion. right radial was prepped with chloroprep then draped in the usual sterile fashion. Physician notified. Baseline sample Acquired. HR: 57 BPM. Physician arrived. Physician scrubbed in. Immediate Pre-Procedure Time Out. Correct Patient: Yes; Correct Procedure: Yes; Correct Site: Yes; Correct Patient Position: Yes; Correct Supplies: Yes; Dried Flammable Prep: Yes; Blood Products Available: N/A;. Lidocaine 1% infiltrated to the right radial. Arterial access obtained. A 5 bermudian Naoop catheter in over wire. Multiple views taken of left coronary artery. Catheter redirected to the RCA. Catheter advanced across the ventricle for LV/EDP. EDP Sample taken: LV 132/3,18; HR: 71 BPM; SpO2: 98%. Pullback taken: LV 130/-2,16; AO 137/80(103); Mean: , Peak to Peak: 0mmHg, SEP: ; HR: 65 BPM; SpO2: 97%. Catheter removed over the exchange wire. A 5 bermudian JR4 catheter in over wire. Dr Saeed to photo lab specialist to review films. Multiple views taken of right coronary artery. Catheter removed over the exchange wire. Dr. Saeed scrubbed in to perform intervention. 6 bermudian XB 3 guide catheter was inserted over the wire. Runthrough guidewire was advanced through the guide catheter to lesion in the mid LAD. Balloon inserted to lesion in the mid LAD. Inflation number : 1 A AB MINI TREK 2.00X20 RX BALLOON was prepped and advanced across the Mid LAD , then inflated to 10 CATHERINE for 0:25 seconds. Inflation number: 2 The AB MINI TREK 2.00X20 RX BALLOON was reinflated across the Mid LAD, to 8 CATHERINE for 0:17 seconds. Balloon out. Results checked. ACT drawn. Results 222 seconds. Therapeutic limits - pre-heparin administration 90-150 seconds and monitoring heparin during a vascular procedure >250 seconds. Wire out. Guide catheter out. A TR Band was successful obtaining hemostatsis at the Right Radial artery insertion site. Post Procedure: Pulses reassessed and unchanged. PERRLA. Strong, equal hand assembler mechanical ordnance bilaterally. No VTE prophylaxis required. Medication's Wasted: Lidocaine 1% = 2 mL. Medication's Wasted: Other = versed 1 mg. Medication's Wasted: Nitro = 49.6 mg. Total IV fluids: 53 mL. Post-op diagnosis: Obstructive CAD. PCI Indication: NSTE. Complications: none. Estimated blood loss: 5mL-10mL. Responsiveness - Normal response to verbal stimuli; alert and oriented, PERRLA. Airway - Unaffected, no intervention required; spontaneous ventilation. Circulation: W/N/L, pulses unchanged. Nausea/Vomiting: No. Procedure completed. Patient transferred by wheelchair to [facility]. Vital chart was stopped. Access Site Site: Right Radial artery Sheath Size: 6 Fr Hemostasis Method: TR Band Hemostasis Success: Successful Procedure Medications Start: 10:19 AM Stop: 10:19 AM Medication: Versed Amount: 1 mg Route: I.V. Start: 10:19 AM Stop: 10:19 AM Medication: Fentanyl Amount: 50 mcg Route: I.V. Start: 10: AM Stop: 10: AM Medication: Versed Amount: 1 mg Route: I.V. Start: 10:25 AM Stop: 10: AM Medication: Verapamil Amount: 5 mg Route: I.A. Start: 10: AM Stop: : AM Medication: Nitrogylcerin Amount: 200 mcg Route: I.A. Start: 10: AM Stop: : AM Medication: Heparin Amount: 5000 units Route: I.V. Start: 10: AM Stop: : AM Medication: 0.9% Saline Amount: 75 ml/hr Route: I.V. drip Start: 10:33 AM Stop: 10:33 AM Medication: Versed Amount: 1 mg Route: I.V. Start: 10:33 AM Stop: 10:33 AM Medication: Fentanyl Amount: 50 mcg Route: I.V. Start: 10:43 AM Stop: 10:43 AM Medication: Heparin Amount: 3000 units Route: I.V. Start: 10:51 AM Stop: 10:51 AM Medication: Nitrogylcerin Amount: 200 mcg Route: I.A. I, the attending physician, have reviewed and verified all procedure medications. Yes, all medications given per verbal order History/Risk Factors Hypertension: Yes Dyslipidemia: No Peripheral Arterial Disease (PAD): No Myocardial Infarction (MO): No Obesity: No Renal Disease: No Tobacco Use: Current/Recent(w/in 1 year) Prior Interventions PCI: Yes CABG: No Valve Surgery: No Date of PCI: 09/22/2012 Report Signatures Interventional Workflow Finalized by Guido Saeed MD on 08/19/2022 11:55 PM Diagnostic Workflow Finalized by Dr Demond Darden MD [facility] on 08/10/2022 06:41 PM
--- NOTE | 2022-08-10 09:02 | W.PM.OPSUD ---
Surgery/Procedure H&P Update DATE OF PROCEDURE: August 10, 2022 DATE H&P PERFORMED: 08/09/22 H&P UPDATE INFORMATION: I have reviewed H&P completed within last 30 days, I have examined patient prior to procedure and No changes to prior documentation PREOP DIAGNOSIS: NSTEMI/UAP PRIMARY INDICATION FOR PROCEDURE: Unstable angina, history of ASHD, status post PCI's PLANNED PROCEDURE: Left heart catheterization with the left and right coronary angiogram and possible PCI PATIENT REASSESSED PRIOR TO SEDATION, WITH NO CHANGE NOTED: Yes PHYSICAL EXAM: alert, oriented x 3, clear to auscultation bilaterally and regular rate & rhythm AIRWAY EVAL/ANESTHESIA PLAN: normal airway, see other exam findings, ASA II, Local Anesthesia, Risks, benefits & alternatives of sedation and/or procedure discussed and Patient agrees to continue as planned
[2022-08-10] MEDS: amlodipine 5 mg Tablet PO (09:19)
--- NOTE | 2022-08-10 10:05 | PC.NURSE ---
to cardiac dock or pier laborer via w/c at this time
--- NOTE | 2022-08-10 12:41 | PC.CHAP ---
Pastoral Care Encounter/Spiritual Assessment Type of Contact [] Declined slip box changer visit [] Patient/Family/Request visit [] Outpatient visit [] Follow-up visit [] Physician referral [] Code/Alert [x] Routine visit [] Staff referral [] Actively dying [] Patient sleeping [] Family support [] [] Out of room [] Palliative care [] [x] Receiving care in room [] Pre-surgical visit [] Trauma [] Long length of stay [] ICU visit [] Other: Relational/Emotional Strength [x] Patient feels connected with others/family/visitors/staff [] Distress [] Loneliness/isolation [] Abandonment Spirituality of Patient [x] Person of Brandy [] Attends Amish of their Brandy [x] Believes in Prayer [] Reads Bible or Anglican materials [] There are Spiritual issues to be addressed Reading Intervention Teacher Interventions [x] Prayer [x] Active listening [x] Non-anxious presence [x] Spiritual/emotional support [] Crisis/trauma care [x] Spiritual counseling [] Bereavement support [] Provided bereavement packet [] Provided Bible/devotional materials [] Provided toy/stuffed animal, coloring book to patient or family member [] Provided Communion [] Anointing/Branch [] Salvation [x] Completed spiritual assessment [] Other: Impact on Illness or Injury [] Angry [] Fearful [x] Anxious [] Often cries [] Exhaustion [] Unable to work [] Unable to attend islam [] Unable to walk/stand [] Unable to read [] Unable to drive [] Unable to eat/drink [] Unable to sleep [] Unable to be with family [] Patient intubated [] Other: Summary senior dealing with heart waiting on doctors report has a good attitude will go go home Time spent with patient 10 mins
--- NOTE | 2022-08-10 13:30 | PC.NURSE ---
received from cardiac catheter builder at 1115 via w/c .report received.pt is alert and awake.sr on monitor.right radial tr band on and inflated.right hand is warm to touch and with brisk capillary refill.palpable radial pulse noted distal to tr band .no hematoma noted.pt instructed in activity restrictions s/p radial artery procedure..and instructed to notify staff for any bleeding,pain,bruising,numbness,sob,or for any concerns at all.pt verb understanding of instructions
--- NOTE | 2022-08-10 16:07 | P.PN_ITS ---
Subjective Subjective: Admitted overnight. H&P appreciated. Seen post cardiac angiogram. Patient underwent balloon angioplasty. Tolerated procedure well. Anxious to go home. Blood pressure is better but still elevated. Denies of having any further chest pain. Seen with sister at bedside. Denies any nausea, vomiting. Vitals/I&O/Wt Last Vital Signs Temp 98.0 F 08/10/22 15:38 Pulse 9 L 08/10/22 15:38 Resp 16 08/10/22 15:38 BP 154/97 08/10/22 15:38 Pulse Ox 97 08/10/22 15:38 O2 Del Method 08/10/22 15:38 08/10/22 08/10/22 08/10/22 06:59 14:59 22:59 Intake Total 720 / 720 Balance 720 / 720 Weight last 48 hrs Weight 82.1 kg Weight 82.1 kg Physical Exam Const: COMMON NORMALS: no acute distress and patient oriented x3 HENMT: COMMON NORMALS: normocephalic HEAD & SCALP: normocephalic Neck/C-Spine: COMMON NORMALS: no JVD Resp: COMMON NORMALS: normal respiratory effort, No retractions, No use of accessory muscles and clear to auscultation bilaterally AUSCULTATION: clear to auscultation bilaterally Cardio: COMMON NORMALS: no JVD, regular rate, regular rhythm, S1 normal heart sound present and S2 normal heart sound present RATE: regular rate RHYTHM: regular rhythm HEART SOUNDS: S1 normal heart sound present and S2 normal heart sound present GI: COMMON NORMALS: Normal to inspection, nondistended, normoactive bowel sounds present, Soft to palpation, non-tender, No hepatosplenomegaly present, no masses and no bruits PALPATION: Yes Soft to palpation and Yes No hepatosplenomegaly present Extremity: COMMON NORMALS: capillary refill normal, no clubbing, cyanosis or edema, no calf tenderness and no pedal edema Neuro: COMMON NORMALS: patient oriented x3, CN's II-XII intact bilaterally and moves all extremities Psych: COMMON NORMALS: mental status grossly normal Data : 08/10/22 05:04 08/10/22 05:04 A&P Assessment and plan (1) ACS (acute coronary syndrome): post balloon angioplasty. Appreciate cardiology recommendation. Continue with aspirin, statin, Coreg. Appreciate A1c, lipid panel. Echocardiogram done shows an EF of 60%, grade 1 diastolic dysfunction with dyski netic basal inferior wall. Status: Acute (2) Accelerated hypertension: Goal blood pressure less than 140/90 mmHg. Continue lisinopril 40 mg, Coreg 3.125 twice daily, amlodipine 10 mg. If needed can add hydrochlorothiazide. Status: Acute (3) Dyslipidemia: Status: Acute Plan Full code Cardiac diet Lovenox for DVT prophylaxis Protonix for PUD prophylaxis Attestations Medical Necessity Statement*: Requires further hospitalization for management of single-vessel disease, post balloon angioplasty, accelerated hypertension while antihypertensives were adjusted Time Spent in Patient Care: Greater than 35 minutes Coding Level of Care Code Acute Network Architect for [facility] Fwd Diagnoses ACS (acute coronary syndrome) I24.9 Accelerated hypertension I10 Dyslipidemia E78.5
[2022-08-10 16:42] LABS: Iron 42 ug/dL (59-158); Total Iron Binding Capacity 220 mcg/dl; Unsaturated Iron Binding 178 ug/dL (112-347)
--- NOTE | 2022-08-10 17:14 | PC.NURSE ---
tr band slowly deflated and eventually removed at 1615.site dressed with 2x2 gauze and secured with biocclusive drsg.right hand remains warm to touch.no hematoma formation.palpable radial pulse noted.pt instructed in activity restrictions s/p tr band removal..and instructed to notify staff for any bleeding,pain,numbness,bruising,or for any concerns at all.pt verb understanding of instructions
[2022-08-10] MEDS: atorvastatin 40 mg Tablet 80 MG PO (17:36)
[2022-08-10] MEDS: amlodipine 10 mg Tablet PO (17:36)
[2022-08-10] MEDS: lisinopril 20 mg Tablet 40 MG PO (17:36)
--- NOTE | 2022-08-10 18:54 | PC.NURSE ---
Dr Darden up to see patient. Received verbal orders to change carvedilol to 12.5mg BID with 1st dose now and to add Plavix 75mg daily. RBVO
[2022-08-10] MEDS: carvedilol 12.5 mg Tablet PO (19:27)
[2022-08-10] MEDS: pantoprazole 40 mg SDV IVP (19:27)
--- NOTE | 2022-08-10 19:49 | NUR.SHIFT ---
Patient c/o pain to IV site and requesting to have it removed. Patient refusing to have IV placed at this time. Stressed importance of having IV. Patient verbalized understanding but stated, I am going home tomorrow. I will be fine. Will continue to educate patient attempt IV start at later time.
[2022-08-11] VITALS (17 sets, daily range): BP systolic 135–170; BP diastolic 83–100; PULSE 65–94; RESP 16–23; TEMP 36.6–36.9; O2SAT 94–98
[2022-08-11 03:41] LABS: Basophils % 0.3 %; Eosinophils # 0.3 10^3/uL (0.0-0.8); Eosinophils % 2.6 %; Hematocrit 42.9 % (42.0-52.0); Hemoglobin 14.3 g/dL (11.7-16.6); Lymphocytes # 2.1 10^3/uL (0.8-4.8); Lymphocytes % 17.7 %; Mean Corpuscular HGB Conc 33.3 g/dL (30.0-36.0); Mean Corpuscular Hemoglobin 29.5 pg (28.0-34.0); Mean Corpuscular Volume 88.6 fl (80-94); Mean Platelet Volume 10.4 fL (7.4-10.4); Monocytes # 1.1 10^3/uL (0.2-0.9); Monocytes % 9.4 %; Neutrophils % 69.7 %; Nucleated Red Blood Cells % 0 %; Platelet Count 201 10^3/cmm (130-400); Red Blood Count 4.84 10^6/uL (4.1-5.3); Red Cell Distribution Width 13.4 % (12.1-15.1); White Blood Count 12.1 10^3/uL (4.0-10.0)
[2022-08-11 04:11] LABS: Alanine Aminotransferase 11 U/L (0-41); Albumin Level 3.3 g/dL (3.5-5.2); Alkaline Phosphatase 55 U/L (40-130); Anion Gap 12.3 (5-19); Aspartate Amino Transferase 16 U/L (0-40); Blood Urea Nitrogen 14 mg/dL (8-23); Calcium 9.1 mg/dL (8.5-10.5); Carbon Dioxide 28 mmol/L (22-29); Chloride 103 mmol/L (98-107); Globulin 2.6 g/dL (1.3-4.6); Glomerular Filtration Rate 75.5 mL/min (90-130); Glucose 107 mg/dL (65-115); Osmolality Calculated 291 mOsm/kg (285-295); Potassium 3.3 mmol/L (3.5-5.1); Sodium 140 mmol/L (136-145); Total Bilirubin 0.3 mg/dL (0.15-1.2); Total Protein 5.9 g/dL (6.6-8.7)
[2022-08-11] MEDS: hyDRALAzine 25 mg Tablet PO (08:46)
[2022-08-11] MEDS: clopidogrel 75 mg Tablet PO ×2 (08:46→08:47)
[2022-08-11] MEDS: aspirin 81 mg EC Tablet PO (08:46)
--- NOTE | 2022-08-11 09:08 | PM.PN ---
Subjective Subjective: Patient underwent a cardiac catheterization yesterday. He was found to have a high-grade lesion in the mid to distal LAD. He had a plain old balloon angioplasty of this lesion. Currently he seems to be doing okay with no recurrence of chest pain. His blood pressure still remains elevated. No fever, chills or cough. No other specific complaints. Medications: Medication Review Details: Current Medications Acetaminophen (Acetaminophen 325 Mg Tablet) 650 mg PO Q6H PRN PRN Reason: Mild/Mod Pain Or Temp >/= 101 Amlodipine Besylate (Amlodipine 10 Mg Tablet) 10 mg PO DAILY@1830 [facility] Last Admin: 08/10/22 17:36 Dose: 10 mg Aspirin (Aspirin 81 Mg Ec Tablet) 81 mg PO DAILY [facility] Last Admin: 08/11/22 08:46 Dose: 81 mg Atorvastatin Calcium (Atorvastatin 40 Mg Tablet) 80 mg PO QPM [facility] Last Admin: 08/10/22 17:36 Dose: 80 mg Carvedilol (Carvedilol 12.5 Mg Tablet) 12.5 mg PO BID [facility] Last Admin: 08/10/22 19:27 Dose: 12.5 mg Clopidogrel Bisulfate (Clopidogrel 75 Mg Tablet) 75 mg PO DAILY [facility] Last Admin: 08/11/22 08:47 Dose: 75 mg Enoxaparin Sodium (Enoxaparin 40 Mg/0.4 Ml Syringe) 40 mg SUBCUT Q24H [facility] Last Admin: 08/10/22 19:27 Dose: 40 mg Hydralazine HCl (Hydralazine 25 Mg Tablet) 25 mg PO TID [facility] Last Admin: 08/11/22 08:46 Dose: 25 mg Losartan Potassium (Losartan 50 Mg Tablet) 100 mg PO DAILY [facility] Morphine Sulfate (Morphine 4 Mg/Ml Sdv 1 Ml) 1 mg IVP Q4H PRN PRN Reason: SEVERE PAIN Naloxone HCl (Naloxone 0.4 Mg/Ml Sdv) 0.1 mg IVP Q2M PRN PRN Reason: OPIATERV Nitroglycerin (Nitroglycerin 0.4 Mg Sublingual Tablet) 0.4 mg SUBLINGUAL Q5M PRN PRN Reason: CHEST PAIN Ondansetron HCl (Ondansetron 2 Mg/Ml Sdv 2 Ml) 4 mg IVP Q8H PRN PRN Reason: vomiting, or N/V if npo Pantoprazole Sodium (Pantoprazole 40 Mg Sdv) 40 mg IVP Q24H [facility] Last Admin: 08/10/22 19:27 Dose: 40 mg Vitals/I&O/Wt Last Vital Signs Temp 98.0 F 08/11/22 07:17 Pulse 72 08/11/22 07:17 Resp 16 08/11/22 07:17 BP 170/100 08/11/22 07:17 Pulse Ox 95 08/11/22 07:17 O2 Del Method 08/11/22 07:17 08/10/22 08/11/22 08/11/22 22:59 06:59 14:59 Intake Total 1200 / 1920 1120 / 3040 240 / 240 Balance 1200 / 1920 1120 / 3040 240 / 240 Weight last 48 hrs Weight 193 lb 6.4 oz Weight 181 lb Weight 181 lb Physical Exam Narrative: GENERAL: The patient is alert and oriented times three. Not in any acute distress. HEENT: No significant pallor, icterus or lymphadenopathy.Oral cavity: There are no mucous membrane lesions. NECK: Trachea appears to be central. No masses noted. No JVD or thyromegaly appreciated. RESPIRATORY: Chest is symmetrical. No intercostals muscle retraction or any accessory muscle activation. There is no chest wall tenderness. Breath sounds are heard bilaterally. No rales or rhonchi heard. No evidence of any consolidation. BREASTS: Deferred. HEART: The heart sounds are normal. No S3 or S4. No significant murmurs. No pericardial rub ABDOMEN: No vessel pulsations or distention. No tenderness. No organomegaly appreciated. Bowel sounds are normally heard. : Deferred. RECTAL: Deferred. LYMPHATIC: No lymphadenopathy noted in the neck. EXTREMITIES: No hematoma bleeding of the right radial arterial puncture site. Good radial and ulnar pulses. MUSCULOSKELETAL: No acute joint deformities or swelling SKIN: There are no significant rashes or ecchymosis NEUROPSYCHIATRIC: The patient is alert and oriented x3. Appears to be in a good mood. No tremors or rigidity noted. Data : 08/11/22 03:33 08/11/22 03:33 A&P Assessment and plan (1) Atherosclerotic heart disease of three affiliated coronary artery with unstable angina pectoris: Patient was found to have patent stented segments of the right coronary artery and circumflex artery. Minimal in-stent narrowing was noted. Moderate diffuse disease in the other vessels. High-grade lesion in the mid to distal LAD as mentioned above. Further details, please refer to the angiogram report from yesterday. Underwent PCI of the LAD lesion. Currently seems to be stable. Status: Acute (2) Accelerated hypertension: Blood pressure seems to be slowly getting under control. Patient advised to take hydralazine 25 mg 3 times daily. Continue on the carvedilol, amlodipine and lisinopril. Status: Acute (3) Dyslipidemia: May continue on the current medications. Status: Acute (4) History of cerebrovascular accident (CVA) with residual deficit: The patient had a CT of the head and neck. There was no evidence of any aneurysm or intracranial bleed. May continue on the current treatment measures. Status: Inactive (5) Hypokalemia: May give potassium 20 mg p.o. now and after 2 hours Status: Acute Plan If the patient continues remain stable, he may be discharged home today. May continue on the current dose of the lisinopril, carvedilol, amlodipine and hydralazine. We will give Plavix 75 mg daily for 3 months. Will be seen at the [facility] next week by the nurse practitioner. I will be seen in the office in 1 month. Attestations Medical Necessity Statement*: Disposition as per the primary Coding Level of Care Code Acute Land Management Forester for [facility] Diagnoses Atherosclerotic heart disease of three affiliated coronary artery with unstable angina pectoris I25.110 Accelerated hypertension I10 Dyslipidemia E78.5 History of cerebrovascular accident (CVA) with residual deficit I69.30 Hypokalemia E87.6
[2022-08-11] MEDS: carvedilol 12.5 mg Tablet PO (09:46)
[2022-08-11] MEDS: potassium chloride ER 20 mEq Tablet PO ×2 (09:46→11:37)
[2022-08-11] MEDS: losartan 50 mg Tablet 100 MG PO (11:37)
--- NOTE | 2022-08-11 13:03 | P.DS_ITS ---
Discharge Providers Date of Admission: 08/09/22 21:32 Date of Discharge: August 11, 2022 Attending Provider at Admission: Og Byrne MD Attending Provider at Discharge: Christ Navarro MD Diagnoses at Discharge Discharge Diagnosis (1) Atherosclerotic heart disease of [place] coronary artery with unstable angina pectoris: Status: Acute (2) Accelerated hypertension: Status: Acute (3) Dyslipidemia: Status: Acute (4) History of cerebrovascular accident (CVA) with residual deficit: Status: Inactive (5) Hypokalemia: Status: Acute Reason for Visit Reason for Visit: Chest Pain Brief History: History as per HPI: Kevin Griffin is a 62 year old male with a past medical history of hypertension, CAD, history of stent to left circumflex, history of stent to RCA, who has not taken his medication for the last few days, as he was out of them, presents to [facility] for chest pain.? Patient with chest pain today, substernal, radiating to the left arm, he has had 2 episodes of chest pain, associate with shortness of breath, nonradiating, no nausea, no vomiting.? He denies any prior history of chest pain, he does take aspirin 81 mg once daily.? Does report smoking.? No drug use. Hospital Course Hospital Course Patient was admitted to hospital further evaluation and management of ACS and hypertensive urgency. Cardiology was consulted. His home antihypertensives were adjusted. He underwent cardiac angiogram on 08/10 was found to have a high-grade lesion in the mid to distal LAD.? He had a plain old balloon angioplasty of this lesion.? During hospitalization his blood pressures became better and he did not have any recurrence of chest pain. 's been discharged in medically stable condition on oral antihypertensives with advised to follow-up with his primary care provider and with cardiology services within next 1 week. Physical Exam Const: COMMON NORMALS: no acute distress and patient oriented x3 HENMT: COMMON NORMALS: normocephalic HEAD & SCALP: normocephalic Neck/C-Spine: COMMON NORMALS: no JVD Resp: COMMON NORMALS: normal respiratory effort, No retractions, No use of accessory muscles and clear to auscultation bilaterally AUSCULTATION: clear to auscultation bilaterally Cardio: COMMON NORMALS: no JVD, regular rate, regular rhythm, S1 normal heart sound present and S2 normal heart sound present RATE: regular rate RHYTHM: regular rhythm HEART SOUNDS: S1 normal heart sound present and S2 normal he art sound present GI: COMMON NORMALS: Normal to inspection, nondistended, normoactive bowel sounds present, Soft to palpation, non-tender, No hepatosplenomegaly present, no masses and no bruits PALPATION: Yes Soft to palpation and Yes No hepatosplenomegaly present Extremity: COMMON NORMALS: capillary refill normal, no clubbing, cyanosis or edema, no calf tenderness and no pedal edema Neuro: COMMON NORMALS: patient oriented x3, CN's II-XII intact bilaterally and moves all extremities Psych: COMMON NORMALS: mental status grossly normal Discharge Data Studies Completed and Pending Completed Studies During Hospitalization Category Date Time Status CT angio head neck [CT angio headneck* [id number]] Cat Scan 08/09/22 21:[address] head wo con* [id number] Stat Cat Scan 08/09/22 21:33 Completed XR chest 1V portable [id number] Stat Exams 08/09/22 14:53 Completed CV. 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 Head CT 08/09/22 21:33 IMPRESSION: 1. Negative for intracranial hemorrhage or mass effect. 2. Large amount of diffuse white matter disease likely reflecting chronic microvascular ischemic changes. 3. Paranasal sinus opacifications. Head/Neck CTA 08/09/22 21:33 IMPRESSION: 1. Moderate right MCA stenosis M1 segment. 2. Mild basilar artery atherosclerotic narrowing. 3. 2 mm infundibulum, less likely aneurysm at the left posterior communicating artery origin. Correlate with history, otherwise no aneurysm identified. IMPRESSION: Mild proximal ICA stenosis. Widely patent vertebral arteries. REFERENCES: NASCET CRITERIA. The degree of stenosis in the cervical segment of the internal carotid artery is based on NASCET criteria. Normal is no stenosis. Mild is less than 50% stenosis. Moderate is 50-69% stenosis. Severe is 70% to 99% stenosis. Total occlusion is no detectable patent lumen. Echocardiogram: CONCLUSIONS ?Normal left ventricular size and systolic function, EF 60 %. ?Moderate left ventricular hypertrophy. Grade I/IV diastolic ?dysfunction (abnormal relaxation filling pattern), normal to ?mildly elevated filling pressures.? Dyskinetic basal inferior ?wall segment. ?Thickened mitral valve. Mild mitral annular calcification. Mild ?mitral valve regurgitation. ?Thickened aortic valve. ?Trace tricuspid valve regurgitation. ?There is no pericardial effusion. ?There are no intracardiac masses. ?No previous study is available for comparison. ?Dr Demond Darden MD FAC ?(Electronically Signed) ?Final Date:? ? ? 10 August 2022 ? 07:30 Laboratory Results WBC 12.1 10^3/uL (4.0-10.0) H 08/11/22 03:33 RBC 4.84 10^6/uL (4.1-5.3) 08/11/22 03:33 Hgb 14.3 g/dL (11.7-16.6) 08/11/22 03:33 Hct 42.9 % (42.0-52.0) 08/11/22 03:33 MCV 88.6 fl (80-94) 08/11/22 03:33 MCH 29.5 pg (28.0-34.0) 08/11/22 03:33 MCHC 33.3 g/dL (30.0-36.0) 08/11/22 03:33 RDW 13.4 % (12.1-15.1) 08/11/22 03:33 Plt Count 201 10^3/cmm (130-400) 08/11/22 03:33 MPV 10.4 fL (7.4-10.4) 08/11/22 03:33 Neut % (Auto) 69.7 % 08/11/22 03:33 Lymph % (Auto) 17.7 % 08/11/22 03:33 [place] % (Auto) 9.4 % 08/11/22 03:33 Eos % (Auto) 2.6 % 08/11/22 03:33 Baso % (Auto) 0.3 % 08/11/22 03:33 Neut # (Auto) 8.40 10^3/uL (1.8-7.7) H 08/11/22 03:33 Lymph # (Auto) 2.1 10^3/uL (0.8-4.8) 08/11/22 03:33 [place] # (Auto) 1.1 10^3/uL (0.2-0.9) H 08/11/22 03:33 Eos # (Auto) 0.3 10^3/uL (0.0-0.8) 08/11/22 03:33 Baso # (Auto) 0.0 10^3/uL (0.0-0.1) 08/11/22 03:33 Nucleated RBC % (auto) 0 % 08/11/22 03:33 Nucleated RBCs # 0.0 /100WBC 08/11/22 03:33 Sodium 140 mmol/L (136-145) 08/11/22 03:33 Potassium 3.3 mmol/L (3.5-5.1) L 08/11/22 03:33 Chloride 103 mmol/L (98-107) 08/11/22 03:33 Carbon Dioxide 28 mmol/L (22-29) 08/11/22 03:33 Anion Gap 12.3 (5-19) 08/11/22 03:33 BUN 14 mg/dL (8-23) 08/11/22 03:33 Creatinine 1.0 mg/dL (0.7-1.2) 08/11/22 03:33 GFR Calculation 75.5 mL/min (90-130) L 08/11/22 03:33 Glucose 107 mg/dL (65-115) 08/11/22 03:33 Estimat Average Glucose 97 08/09/22 22:02 Hemoglobin A1c 5.0 % (4.0-6.0) 08/09/22 22:02 Calculated Osmolality 291 mOsm/kg (285-295) 08/11/22 03:33 Calcium 9.1 mg/dL (8.5-10.5) 08/11/22 03:33 Magnesium 2.1 mg/dL (1.7-2.3) 08/10/22 05:04 Iron 42 ug/dL (59-158) L 08/10/22 05:04 TIBC 220 mcg/dl 08/10/22 05:04 % Saturation 19.0 % (20-50) L 08/10/22 05:04 Unsat Iron Binding 178 ug/dL (112-347) 08/10/22 05:04 Total Bilirubin 0.3 mg/dL (0.15-1.2) 08/11/22 03:33 AST 16 U/L (0-40) 08/11/22 03:33 ALT 11 U/L (0-41) 08/11/22 03:33 Alkaline Phosphatase 55 U/L (40-130) 08/11/22 03:33 Troponin T Baseline 31 ng/L (0-15) H 08/09/22 15:00 Troponin T 120 Minute 55.09 ng/L (0-15) H 08/09/22 16:49 Delta Troponin T 24.09 ABS# (0-10) H* 08/09/22 16:49 Troponin T Hi Sens 6Hr 74.19 ng/L (0-15) H 08/09/22 22:02 Troponin T Hi Sens 6Hr Delta 43.19 ng/L (0-12) H* 08/09/22 22:02 NT-Pro-B Natriuret Pep 498 pg/mL (0-125) H 08/09/22 20:46 Total Protein 5.9 g/dL (6.6-8.7) L 08/11/22 03:33 Albumin 3.3 g/dL (3.5-5.2) L 08/11/22 03:33 Globulin 2.6 g/dL (1.3-4.6) 08/11/22 03:33 Triglycerides 137 mg/dL (0-150) 08/09/22 22:02 Cholesterol 182 mg/dL (0-200) 08/09/22 22:02 LDL Cholesterol, Calc 115 mg/dL (50-129) 08/09/22 22:02 HDL Cholesterol 40 mg/dL (60-100) L 08/09/22 22:02 LDL/HDL Ratio 2.88 RATIO (0.00-3.22) 08/09/22 22:02 Cholesterol/HDL Ratio 4.55 mg/dL (1.0-5.00) 08/09/22 22:02 TSH 2.20 uIU/mL (0.27-4.20) 08/09/22 22:02 Vitals Last Vital Signs Temp 98.1 F 08/11/22 11:07 Pulse 77 08/11/22 11:07 Resp 18 08/11/22 11:07 BP 164/88 08/11/22 12:34 Pulse Ox 94 08/11/22 11:07 O2 Del Method 08/11/22 11:07 Discharge Plan Discharge Patient Disposition: Home Condition: Stable Prescriptions: New carvedilol 12.5 mg Tablet 12.5 mg PO BID Qty: 60 0RF hydralazine 25 mg Tablet 25 mg PO TID Qty: 90 0RF losartan 50 mg Tablet 100 mg PO DAILY Qty: 60 0RF clopidogrel 75 mg Tablet 75 mg PO DAILY Qty: 30 0RF Continued atorvastatin [Lipitor] 80 mg Tablet 80 mg PO DAILY@1830 Aspir-81 81 mg Tablet,Delayed Release (Dr/Ec) 81 mg PO DAILY@1830 amlodipine 10 mg Tablet 10 mg PO DAILY@1830 Discontinued hydrochlorothiazide 25 mg Tablet 25 mg PO DAILY@1830 lisinopril 40 mg Tablet 40 mg PO DAILY@1830 Discharge Orders: Discharge Order (Routine); Ordered 08/11/22 Ordered By: Christ Navarro Referrals: Yazmin Robin FNP [Nurse Practitioner] - 08/18/22 11:15 am Demond Darden MD [Physician] - 1 month Patient Instructions: Opioid Safety Activity Restrictions/Additional Instructions: Medications for blood pressures have been changed. Take Coreg twice daily, losartan once daily, amlodipine once daily, hydralazine 3 times a day. Do not take hydrochlorothiazide and lisinopril anymore. Follow-up with Yazmin Robin/nurse practitioner from [facility] in [address] Darden in next 1 month. Please follow-up with a primary care provider within next 1 week for repeat BMP. Discharge Attestations Time Spent in Discharge Care*: greater than 30 min Specific Discharge Activities: educating patient, discussing with pcp/other providers, discussing with rn case management/social workers/dc planners, documenting/other paperwork and evaluating patient/reviewing data Status at Discharge: Cognitive status at discharge: cognitively intact , Behavioral status at discharge: cooperative , Functional status at discharge: independent ambulation , Overall status at discharge: patient is back to baseline Quality Metrics Clinical Quality Measures [ No reported AMI, CVA or VTE this stay] Coding Level of Care Code Acute Chg FW DC note Diagnoses Atherosclerotic heart disease of [place] coronary artery with unstable angina pectoris I25.110 Accelerated hypertension I10 Dyslipidemia E78.5 History of cerebrovascular accident (CVA) with residual deficit I69.30 Hypokalemia E87.6
--- NOTE | 2022-08-11 14:39 | PC.NURSE ---
meds to bed dr martinez stated pt has not had refills on his home meds. okay for him to have all his home meds refill to our inpt pharmacy. discharge meds called in to our pharmacy.
--- NOTE | 2022-08-11 15:19 | PC.NURSE ---
Discharge Note Patient discharged to home via private vehicle accompanied by family member. Discharge instructions reviewed with patient and/or telephone sales representative. Mobile pharmacy medications and/or prescriptions provided. Belongings/home medications returned. meds to bed delivered.
== END 2022-08-11 15:19 | disposition home or self-care (01) ==
LOC: ER 18:21 → MEDSURG 23:24
PROVIDERS: Internal Medicine; Internal Medicine Cardiovascular Disease; Admitting Provider Family Medicine; Emergency Provider Emergency Medicine; Visit Provider Student in an Organized Health Care Education/Training Program
DX: I25.110 Atherosclerotic heart disease of native coronary artery with unstable angina pectoris (principal); I10 Essential (primary) hypertension; E78.5 Hyperlipidemia, unspecified; Z86.73 Personal history of transient ischemic attack (TIA), and cerebral infarction without residual deficits; E87.6 Hypokalemia; Z95.5 Presence of coronary angioplasty implant and graft; I25.2 Old myocardial infarction; Z79.82 Long term (current) use of aspirin; F17.210 Nicotine dependence, cigarettes, uncomplicated
CPT/HCPCS: 36415; 70450; 70496; 70498; 71045; 80048; 80053; 80061; 83036; 83540; 83550; 83735; 83880; 84443; 84484; 85025; 85347; 92920; 93005; 93306; 93458; 94664; 96360; 96372; 96374; 99152; 99153; 99285; C1725; C1769; C1887; C1894; C9113; G0378; J1644; J1650; J2250; J3010; J3490; J7030; Q9967

== ENCOUNTER → 2022-08-18 12:50 | Outpatient (BNVA) | payer MEDICARE, SELFPAY | PROVIDERS: Visit Provider Nurse Practitioner Family | DX: I25.110 Atherosclerotic heart disease of native coronary artery with unstable angina pectoris (principal); F17.200 Nicotine dependence, unspecified, uncomplicated | CPT/HCPCS: 36415; 80048; 85025; 99213; 99214 ==

== ENCOUNTER → 2022-10-02 11:29 | Outpatient (BNVA) | payer MEDICARE, SELFPAY | PROVIDERS: PCP Nurse Practitioner Family; Visit Provider Internal Medicine Cardiovascular Disease | DX: I10 Essential (primary) hypertension (principal); I25.110 Atherosclerotic heart disease of native coronary artery with unstable angina pectoris; E78.5 Hyperlipidemia, unspecified; I69.30 Unspecified sequelae of cerebral infarction; F17.200 Nicotine dependence, unspecified, uncomplicated | CPT/HCPCS: 99214 ==

== ENCOUNTER → 2023-04-18 14:17 | Outpatient (BNVA) | payer MEDICARE, SELFPAY | PROVIDERS: PCP Nurse Practitioner Family; Visit Provider Nurse Practitioner Family | DX: I10 Essential (primary) hypertension (principal); I25.110 Atherosclerotic heart disease of native coronary artery with unstable angina pectoris; F17.200 Nicotine dependence, unspecified, uncomplicated | CPT/HCPCS: 99214 ==

== ENCOUNTER 2023-05-24 16:49 | Emergency (ER) | payer MEDICARE, SELFPAY ==
--- NOTE | 2023-05-24 16:55 | USR_ITS ---
PROCEDURE INFORMATION: Exam: US Duplex Left Lower Extremity Veins, Limited Exam date and time: 05/24/2023 5:50 PM Age: 63 years old Clinical indication: Pain; Leg, lower; Left; Additional info: Leg pain TECHNIQUE: Imaging protocol: Real-time duplex ultrasound of the left extremity with 2-D gomez scale, color Doppler flow and spectral waveform analysis including responses to compression and other maneuvers (when performed) with image documentation. Limited exam focused on the left lower extremity veins. COMPARISON: No relevant prior studies available. FINDINGS: Left deep veins: Unremarkable. The common femoral, femoral, proximal profunda femoral and popliteal veins are patent without thrombus, as well as visualized calf veins. Normal Doppler waveforms. Normal compressibility and/or augmentation response. Left superficial veins: Unremarkable. Saphenofemoral junction is patent without thrombus. Soft tissues: Unremarkable. US/CV venous duplex [facility] [id number] IMPRESSION: No evidence of deep vein thrombosis.
[2023-05-24 17:01] VITALS: BP 147/88; PULSE 84; RESP 16; TEMP 37.4; O2SAT 97; BMI 25.8
--- NOTE | 2023-05-24 19:32 | W.ED.EXTPRO ---
HPI - Extremity Problem General: Chief complaint: Extremity Problem,Nontraumatic Stated complaint: left leg pain Time Seen by Provider: 05/24/23 19:32 History of Present Illness: 63-year-old male patient comes in today with complaints of inguinal left hip pain. Patient reports pain is increased with movement of the hip. Patient has a history of stroke in which he favors the right leg due to weakness from the stroke. Patient reports over the last 5 days he has had increasing pain and discomfort and difficulty with moving due to the pain in the hip. Patient was accompanied by his sister who is concerned about patient's inability to get around. Patient appears nontoxic. Patient denies any fever. Patient feels that he has a muscle that has been strained. Review of Systems General: Reports: 10 or more systems reviewed and unremarkable except in HPI and below Musc: Reports: joint pain (Left hip) PFS ED PFSH: Medical History Dyslipidemia History of cerebrovascular accident (CVA) with residual deficit History of coronary artery disease History of hypertension Surgical History History of heart artery stent Family History Sister Anesthesia complication CAD (coronary artery disease) Father CAD (coronary artery disease) Cancer Mother Cancer Family/Other Diabetes Stroke Denies family history of Clotting disorder Dementia Chronic kidney disease (CKD) Suicide Bleeding disorder Lung disease Social History Smoking and tobacco status: current every day smoker Alcohol intake: current Alcohol intake frequency: few times a month Alcohol type: wine Substance/Drug Use: never Physical Exam Const: COMMON NORMALS: alert HENMT: COMMON NORMALS: normocephalic HEAD & SCALP: normocephalic Neck/C-Spine: COMMON NORMALS: full ROM Resp: COMMON NORMALS: normal respiratory effort Cardio: COMMON NORMALS: regular rate RATE: regular rate : COMMON NORMALS: Yes no CVA tenderness BLADDER/KIDNEY EXAM: Yes no CVA tenderness Back/Pelvis: COMMON NORMALS: no CVA tenderness Extremity: LEFT LOWER EXTREMITY: Yes hip joint (Nontender, decreased range of motion due to pain) Left hip: Yes ROM Neuro: SENSORIUM/ORIENTATION: Yes alert Skin: COMMON NORMALS: turgor normal GENERAL SKIN EXAM: turgor normal Course Vital Signs: Vital signs: Vital Signs Temperature 99.0 F 05/24/23 19:46 Pulse Rate 75 05/24/23 19:46 Respiratory Rate 16 05/24/23 19:46 Blood Pressure 168/79 05/24/23 19:46 Pulse Oximetry 97 05/24/23 19:46 Oxygen Delivery Me thod Room Air 05/24/23 17:01 MDM - Extremity (Nontraumatic) Medical Decision Making 63-year-old male patient comes in today for complaints of left hip pain. On exam patient has decreased range of motion due to pain. Distal pulses and sensation are intact. No signs of significant swelling or redness distally. No pain is noted along the joint lines of the knee or calf. Differential diagnosis includes DVT, osteoarthritis, piriformis syndrome, muscle strain. Ultrasound was negative for DVT. X-ray of the hip was unremarkable. Reviewed exam with patient recommended treatment for musculoskeletal pain. Patient reported understanding and agreed to plan. Lab Data Radiology Impressions Venous Duplex 05/24/23 16:55 IMPRESSION: No evidence of deep vein thrombosis. Hip/Pelvis X-Ray 05/24/23 19:45 IMPRESSION: No acute findings. Discharge Plan Discharge Patient Disposition: Home Clinical Impression: Muscle strain of left hip Qualifiers: Encounter type: initial encounter Qualified Code(s): S76.012A - Strain of muscle, fascia and tendon of left hip, initial encounter Condition: Stable Prescriptions: No Action potassium citrate 99 mg capsule PO DIRECTED PRN Rx Instructions: Every 3-4 days magnesium 250 mg tablet 250 mg PO DIRECTED PRN Rx Instructions: 2 times weekly atorvastatin [Lipitor] 80 mg Tablet 80 mg PO DAILY@1830 aspirin 81 mg Tablet,Delayed Release (Dr/Ec) 81 mg PO DAILY@1830 amlodipine 10 mg Tablet 10 mg PO DAILY@1830 losartan 50 mg Tablet 100 mg PO DAILY Qty: 60 0RF carvedilol 12.5 mg Tablet 12.5 mg PO BID Qty: 60 0RF hydralazine 25 mg Tablet 25 mg PO TID Qty: 90 0RF clopidogrel 75 mg Tablet 75 mg PO DAILY Qty: 30 0RF Discharge Orders: Discharge ED (Routine); Ordered 05/24/23 Ordered By: Mateusz Linn Referrals: Trista Alexis NP [Primary Care Provider] - Discharge Diet: Usual diet Discharge Activity: Increase activity as tolerated Patient Instructions: Hip Pain (ED) Activity Restrictions/Additional Instructions: Activity as tolerated. Use acetaminophen and/or ibuprofen as needed for pain. Use ice or heat for further pain relief. Follow-up with primary care for further instructions. Return to emergency department for new concerns or worsening symptoms such as high fever, significant redness and swelling to the lower leg, or new concerns. Coding Level of Care Code ED [employer] Officer for Luther Shea
--- NOTE | 2023-05-24 19:45 | XRR_ITS ---
PROCEDURE INFORMATION: Exam: XR Left Hip Exam date and time: 05/24/2023 8:09 PM Age: 63 years old Clinical indication: Hip pain; Left hip TECHNIQUE: Imaging protocol: Radiologic exam of the left hip. Views: 2 or 3 views hip with pelvis when performed. COMPARISON: No relevant prior studies available. FINDINGS: Bones/joints: No fracture or dislocation is seen. Hip joint appears maintained. No significant or acute osseous abnormality. Soft tissues: Vascular calcification noted within the soft tissues. XR/XR hip LT 2-3V wo/w pel* [id number] IMPRESSION: No acute findings.
[2023-05-24 19:46] VITALS: BP 168/79; PULSE 75; RESP 16; TEMP 37.2; O2SAT 97
[2023-05-24] MEDS: ketorolac 30 mg/mL INJ IM (19:54)
[2023-05-24 20:52] VITALS: BP 168/79; PULSE 75; RESP 16; TEMP 37.2; O2SAT 97
== END 2023-05-24 20:52 | disposition home or self-care (01) ==
PROVIDERS: Emergency Provider Nurse Practitioner Family; PCP Nurse Practitioner Family
DX: S76.012A Strain of muscle, fascia and tendon of left hip, initial encounter (principal); Z79.82 Long term (current) use of aspirin; Z79.02 Long term (current) use of antithrombotics/antiplatelets; F17.210 Nicotine dependence, cigarettes, uncomplicated; E78.5 Hyperlipidemia, unspecified; Z86.73 Personal history of transient ischemic attack (TIA), and cerebral infarction without residual deficits; I25.10 Atherosclerotic heart disease of native coronary artery without angina pectoris; I10 Essential (primary) hypertension; X50.9XXA Other and unspecified overexertion or strenuous movements or postures, initial encounter
CPT/HCPCS: 73502; 93971; 96372; 99284; J1885

== ENCOUNTER → 2023-10-31 13:51 | Outpatient (BNVA) | payer MEDICARE, SELFPAY | PROVIDERS: PCP Nurse Practitioner Family; Visit Provider Internal Medicine Cardiovascular Disease | DX: I25.110 Atherosclerotic heart disease of native coronary artery with unstable angina pectoris (principal); I10 Essential (primary) hypertension; E78.5 Hyperlipidemia, unspecified; I69.30 Unspecified sequelae of cerebral infarction; F17.200 Nicotine dependence, unspecified, uncomplicated | CPT/HCPCS: 99214 ==

== ENCOUNTER 2023-12-19 02:14 | Emergency (ER) | payer MEDICARE, SELFPAY ==
[2023-12-19 02:15] VITALS: BP 170/99; PULSE 74; RESP 18; O2SAT 97; BMI 26.9
--- NOTE | 2023-12-19 02:21 | CTR_ITS ---
PROCEDURE INFORMATION: Exam: CT Head Without Contrast Exam date and time: 12/19/2023 2:30 AM Age: 63 years old Clinical indication: Stroke-like symptoms; Other: CVA like symptoms TECHNIQUE: Imaging protocol: Computed tomography of the head without contrast. Radiation optimization: All CT scans at this facility use at least one of these dose optimization techniques: automated exposure control; mA and/or kV adjustment per patient size (includes targeted exams where dose is matched to clinical indication); or iterative reconstruction. Other technique: STROKE PROTOCOL was implemented. COMPARISON: CT angio headneck* [id number] 08/09/2022 9:47 PM RADIATION DOSE METRICS: Total DLP (mGy-cm): 1116.55 FINDINGS: Brain: No focal hemorrhage or midline shift is identified. The ventricles and parenchyma show mild atrophy and moderate chronic bicerebral white matter ischemic change. A few scattered old lacunes are likely. Cerebral ventricles: No ventriculomegaly or evidence of hydrocephalus. Paranasal sinuses: Mild ethmoid disease. Mastoid air cells: Visualized mastoid air cells are well aerated. Bones/joints: No displaced skull fracture is noted. Soft tissues: Unremarkable. Vasculature: Diffuse vascular calcifications are present. CT/CT head thrombolytic [id number] IMPRESSION: 1. No acute intracranial hemorrhage. 2. Mild to moderate age-related changes. ASSESSMENT: ASPECTS ([place] Stroke Program Early CT Score) is 10.
--- NOTE | 2023-12-19 02:21 | XRR_ITS ---
PROCEDURE INFORMATION: Exam: XR Chest Exam date and time: 12/19/2023 2:41 AM Age: 63 years old Clinical indication: Cough; Additional info: HTN TECHNIQUE: Imaging protocol: Radiologic exam of the chest. Views: 1 view. COMPARISON: CR XR chest 1V portable [id number] 08/09/2022 3:09 PM FINDINGS: Lungs: Unremarkable. No consolidation. Pleural spaces: Unremarkable. No pleural effusion. No pneumothorax. Heart/Mediastinum: Stable borderline cardiomegaly. Bones/joints: Unremarkable. XR/XR chest 1V portable [id number] IMPRESSION: No acute findings.
--- NOTE | 2023-12-19 02:24 | ECG_ITS ---
[facility] Test Date: 2023-12-19 Pat Name: Kevin Griffin Department: Room: Gender: Male Outside Plant Engineer: : 1960 Requested By: Elton Mccullough Order Number: [id number] Ashley MD: Guido Saeed M.D. Measurements Intervals [place] Rate: 68 P: 69 KS: 171 QRS: -3 QRSD: 167 T: 16 QT: 451 QTc: 481 Interpretive Statements SINUS RHYTHM INDETERMINATE AXIS RIGHT BUNDLE BRANCH BLOCK [120+ ms QRS DURATION, UPRIGHT V1, 40+ ms S IN I/aVL/V4/V5/V6] Compared to ECG 08/10/2022 01:16:58 Ventricular premature complex(es) no longer present Electronically Signed On 12-19-2023 18:32:12 ANIMAL COP by Guido Saeed M.D. [email or web address]
--- NOTE | 2023-12-19 02:27 | ED_ITS ---
HPI - General Adult 2 General: Chief complaint: Neuro Symptoms/Deficit Stated complaint: stroke like symptoms Time Seen by Provider: 12/19/23 02:20 History of Present Illness: Patient presents to the ER by EMS with strokelike symptoms. Patient had a history of stroke with cognitive deficit. Patient went to bed around 9:00 and said he was just fine. Patient woke up about 2 AM and said he felt like he did the last time he had a stroke. Patient cannot really elaborate on him what his symptoms are other than he feels more slowed cognition than normal and more gait instability than normal patient is alert and oriented x 4 with no obvious focal neurodeficits patient does speak slowly and appears to think of words before he says and but answers all questions appropriately patient is currently on Plavix. Review of Systems 2 General: Reports: 10 or more systems reviewed and unremarkable except in HPI and below PFSH ED 2 PFSH: Medical History History of cerebrovascular accident (CVA) with residual deficit Dyslipidemia History of hypertension History of coronary artery disease Surgical History History of heart artery stent Family History Sister Anesthesia complication CAD (coronary artery disease) Father CAD (coronary artery disease) Cancer Mother Cancer Family/Other Diabetes Stroke Denies family history of Clotting disorder Dementia Chronic kidney disease (CKD) Suicide Bleeding disorder Lung disease Social History Smoking and tobacco/nicotine status: current every day tobacco/nicotine user Alcohol intake: current Alcohol intake frequency: few times a month Alcohol type: wine Substance/Drug Use: never Physical Exam 2 Const: COMMON NORMALS: no acute distress, average body habitus, patient oriented x3, no limitations, healthy appearing, alert and well nourished HENMT: COMMON NORMALS: normocephalic, atraumatic, hearing grossly normal bilaterally, external ears normal, Normal external nose present, moist oral mucous membranes and oropharynx normal HEAD & SCALP: normocephalic and atraumatic NOSE: Normal external nose present EXTERNAL EAR: Yes external ears normal Eye: COMMON NORMALS: Equal, round and reactive pupils present, EOMs intact bilaterally, conjunctivae normal and no scleral icterus CONJUNCTIVA: Yes conjunctivae normal PUPIL: Yes Equal, round and reactive pupils present Neck/C-Spine: COMMON NORMALS: full ROM, no lymphadenopathy, supple, no meningeal signs, no JVD and Thyroid normal THYROID: Thyroid normal Chest: COMMONS NORMALS: normal inspection of the chest and normal palpation of entire chest wall Resp: COMMON NORMALS: normal respiratory effort, No retractions, No use of accessory muscles and clear to auscultation bilaterally AUSCULTATION: clear to auscultation bilaterally Cardio: COMMON NORMALS: no JVD, regular rate, regular rhythm, S1 normal heart sound present, S2 normal heart sound present, No gallops present (Cardio), No clicks present (Cardio), No murmurs present (Cardio) and No rub (Cardio) R ATE: regular rate RHYTHM: regular rhythm HEART SOUNDS: S1 normal heart sound present and S2 normal heart sound present GI: COMMON NORMALS: Normal to inspection, nondistended, normoactive bowel sounds present, Soft to palpation, non-tender, No hepatosplenomegaly present and no masses PALPATION: Yes Soft to palpation and Yes No hepatosplenomegaly present Extremity: NARRATIVE EXTREMITY EXAM: Strength symmetrically bilaterally in upper and lower extremities no focal neurodeficit noted. Neuro: COMMON NORMALS: patient oriented x3 SENSORIUM/ORIENTATION: Yes alert MENINGEAL SIGNS: Yes no meningeal signs Course 2 Vital Signs: Vital signs: Vital Signs Pulse Rate 62 12/19/23 04:13 Respiratory Rate 16 12/19/23 04:13 Blood Pressure 128/56 12/19/23 04:13 Pulse Oximetry 96 12/19/23 04:13 Oxygen Delivery Me thod Room Air 12/19/23 02:15 [facility] - General Adult Medical Decision Making Patient was worked up in a strokelike fashion with chest x-ray, head CT, serial lab work serial EKGs, all of which was essentially benign and did not show any acute cause of the patient's weird feelings. These results was discussed with the patient who feels good about going home. Patient be discharged and to go home patient to follow-up with his PCP. Differential Diagnosis Hypertension, history of stroke, cognitive delay Medical Records I reviewed the patient's medical records. Lab Data I reviewed the patient's lab results. 12/19/23 02:22 12/19/23 02:22 Radiology Impressions Chest X-Ray 12/19/23 02:21 IMPRESSION: No acute findings. Head CT 12/19/23 02:21 IMPRESSION: 1. No acute intracranial hemorrhage. 2. Mild to moderate age-related changes. ASSESSMENT: ASPECTS ([place] Stroke Program Early CT Score) is 10. Laboratory Results WBC 9.16 10^3/uL (3.29-11.43) 12/19/23 02:22 RBC 4.80 10^6/uL (3.85-5.65) 12/19/23 02:22 Hgb 14.20 g/dL (11.27-16.99) 12/19/23 02:22 Hct 42.0 % (37-53) 12/19/23 02:22 MCV 87.5 fl (82-101) 12/19/23 02:22 MCH 29.6 pg (27-33) 12/19/23 02:22 MCHC 33.8 g/dL (30-55) 12/19/23 02:22 RDW 13.6 % (12.1-15.1) 12/19/23 02:22 Plt Count 226 10^3/cmm (157-399) 12/19/23 02:22 MPV 10.1 fL (7.4-10.4) 12/19/23 02:22 Neut % (Auto) 63.4 % 12/19/23 02:22 Lymph % (Auto) 24.7 % 12/19/23 02:22 [place] % (Auto) 8.1 % 12/19/23 02:22 Eos % (Auto) 3.1 % 12/19/23 02:22 Baso % (Auto) 0.5 % 12/19/23 02:22 Neut # (Auto) 5.81 10^3/uL (1.8-7.7) 12/19/23 02:22 Lymph # (Auto) 2.3 10^3/uL (0.8-4.8) 12/19/23 02:22 [place]ps # (Auto) 0.7 10^3/uL (0.2-0.9) 12/19/23 02:22 Eos # (Auto) 0.3 10^3/uL (0.0-0.8) 12/19/23 02:22 Baso # (Auto) 0.1 10^3/uL (0.0-0.1) 12/19/23 02:22 Nucleated RBC % (auto) 0 % 12/19/23 02:22 Nucleated RBCs # 0.0 /100WBC 12/19/23 02:22 PT 12.80 SECONDS (12.1-14.9) 12/19/23 02:22 INR 0.94 (0.8-1.2) 12/19/23 02:22 Sodium 142 mmol/L (136-145) 12/19/23 02:22 Potassium 3.4 mmol/L (3.5-5.1) L 12/19/23 02:22 Chloride 104 mmol/L (98-107) 12/19/23 02:22 Carbon Dioxide 27 mmol/L (22-29) 12/19/23 02:22 Anion Gap 14.4 (5-19) 12/19/23 02:22 BUN 18 mg/dL (8-23) 12/19/23 02:22 Creatinine 0.9 mg/dL (0.7-1.2) 12/19/23 02:22 GFR Calculation 85.0 mL/min (90-130) L 12/19/23 02:22 Glucose 98 mg/dL (65-115) 12/19/23 02:22 POC Glucose 98 mg/dL (70-110) 12/19/23 02:18 Calculated Osmolality 296 mOsm/kg (285-295) H 12/19/23 02:22 Calcium 9.2 mg/dL (8.5-10.5) 12/19/23 02:22 Magnesium 2.0 mg/dL (1.7-2.3) 12/19/23 02:22 Total Bilirubin 0.2 mg/dL (0.15-1.2) 12/19/23 02:22 AST 17 U/L (0-40) 12/19/23 02:22 ALT 18 U/L (0-41) 12/19/23 02:22 Alkaline Phosphatase 71 U/L (40-130) 12/19/23 02:22 Troponin T Baseline 22 ng/L (0-15) H 12/19/23 02:22 Troponin T 120 Minute 21.60 ng/L (0-15) H 12/19/23 04:07 Delta Troponin T -0.40 ABS# (0-10) L 12/19/23 04:07 C-Reactive Protein 3.0 mg/L (0.0-4.9) 12/19/23 02:22 Total Protein 5.8 g/dL (6.6-8.7) L 12/19/23 02:22 Albumin 3.8 g/dL (3.5-5.2) 12/19/23 02:22 Globulin 2.0 g/dL (1.3-4.6) 12/19/23 02:22 TSH 3.51 uIU/mL (0.27-4.20) 12/19/23 02:22 Urine Color Light yellow (Yellow) 12/19/23 03:10 Urine Appearance Clear (CLEAR) 12/19/23 03:10 Urine pH 6 (5-7) 12/19/23 03:10 Ur Specific [place] 1.015 (1.005-1.030) 12/19/23 03:10 Urine Protein Neg (Negative) 12/19/23 03:10 Urine Glucose (UA) Norm (Normal) 12/19/23 03:10 Urine Ketones Negative (Negative) 12/19/23 03:10 Urine Blood Neg (Negative) 12/19/23 03:10 Urine Nitrate Negative (Negative) 12/19/23 03:10 Urine Bilirubin Neg (Negative) 12/19/23 03:10 Urine Urobilinogen Neg mg/dL (Negative) 12/19/23 03:10 Ur Leukocyte Esterase Negative (Negative) 12/19/23 03:10 Urine Opiates Screen Negative ng/mL (Negative) 12/19/23 03:10 Ur Barbiturates Screen Negative ng/mL (Negative) 12/19/23 03:10 Ur Phencyclidine Scrn Negative ng/mL (Negative) 12/19/23 03:10 Ur Amphetamines Screen Negative ng/mL (Negative) 12/19/23 03:10 U Benzodiazepines Scrn Negative ng/mL (Negative) 12/19/23 03:10 Urine Cocaine Screen Negative ng/mL (Negative) 12/19/23 03:10 U Marijuana (THC) Screen Positive ng/mL (Negative) H 12/19/23 03:10 All radiology interpretation(s) finalized by discharge EKG Data EKG 1: I personally reviewed and interpreted this EKG as follows: EKG interpretation date: 12/19/23 EKG interpretation time: 02:24 Prior EKG tracings: not available for review Interpretation: EKG shows ventricular rate 68 bpm, IA interval 171, QRS duration 167, QTc of 468, sinus rhythm, right bundle branch block Computer generated interpretation: Chest X-Ray 12/19/23 02:21 IMPRESSION: No acute findings. Head CT 12/19/23 02:21 IMPRESSION: 1. No acute intracranial hemorrhage. 2. Mild to moderate age-related changes. ASSESSMENT: ASPECTS ([place] Stroke Program Early CT Score) is 10. EKG 2: I personally reviewed and interpreted this EKG as follows: EKG interpretation date: 12/19/23 EKG interpretation time: 04:10 Prior EKG tracings: available for review Interpretation: Ventricular rate 61 bpm, IA interval 165, QRS duration 168, QTc of 473, sinus rhythm, right bundle branch block Computer generated interpretation: Chest X-Ray 12/19/23 02:21 IMPRESSION: No acute findings. Head CT 12/19/23 02:21 IMPRESSION: 1. No acute intracranial hemorrhage. 2. Mild to moderate age-related changes. ASSESSMENT: ASPECTS ([place] Stroke Program Early CT Score) is 10. Discharge Plan Discharge Patient Disposition: Home Clinical Impression: History of CVA with residual deficit Hypertension Qualifiers: Hypertension type: unspecified Qualified Code(s): I10 - Essential (primary) hypertension Condition: Stable Prescriptions: No Action potassium citrate 99 mg capsule PO DIRECTED PRN Rx Instructions: Every 3-4 days magnesium 250 mg tablet 250 mg PO DIRECTED PRN Rx Instructions: 2 times weekly hydralazine 50 mg tablet 50 mg PO BID Qty: 60 5RF atorvastatin [Lipitor] 80 mg Tablet 80 mg PO DAILY@1830 aspirin 81 mg Tablet,Delayed Release (Dr/Ec) 81 mg PO DAILY@1830 amlodipine 10 mg Tablet 10 mg PO DAILY@1830 losartan 50 mg Tablet 100 mg PO DAILY Qty: 60 0RF carvedilol 12.5 mg Tablet 12.5 mg PO BID Qty: 60 0RF clopidogrel 75 mg Tablet 75 mg PO DAILY Qty: 30 0RF Discharge Orders: Discharge ED (Routine); Ordered 12/19/23 Ordered By: Elton Mccullough Referrals: Trista Alexis NP [Primary Care Provider] - 1 week Patient Instructions: Hypertension (ED) Activity Restrictions/Additional Instructions: Your workup in ER was essentially been negative for acute stroke. Please follow-up with your family practice physician for further evaluation and testing as needed. If your symptoms worsen or return please feel free to return to the ER. Coding Level of Care Code ED Key Filer for Luther Shea
[2023-12-19 02:29] LABS: Basophils # 0.1 10^3/uL (0.0-0.1); Basophils % 0.5 %; Eosinophils # 0.3 10^3/uL (0.0-0.8); Eosinophils % 3.1 %; Lymphocytes # 2.3 10^3/uL (0.8-4.8); Lymphocytes % 24.7 %; Mean Corpuscular HGB Conc 33.8 g/dL (30-55); Mean Corpuscular Hemoglobin 29.6 pg (27-33); Mean Corpuscular Volume 87.5 fl (82-101); Mean Platelet Volume 10.1 fL (7.4-10.4); Monocytes # 0.7 10^3/uL (0.2-0.9); Monocytes % 8.1 %; Neutrophils # 5.81 10^3/uL (1.8-7.7); Neutrophils % 63.4 %; Nucleated Red Blood Cells % 0 %; Platelet Count 226 10^3/cmm (157-399); Red Cell Distribution Width 13.6 % (12.1-15.1); White Blood Count 9.16 10^3/uL (3.29-11.43)
[2023-12-19 02:29] LABS: Glucose Point of Care 98 mg/dL (70-110)
[2023-12-19 02:52] LABS: INR 0.94 (0.8-1.2)
[2023-12-19 03:02] LABS: Troponin(5th) Baseline 22 ng/L (0-15)
[2023-12-19 03:12] LABS: Alanine Aminotransferase 18 U/L (0-41); Albumin Level 3.8 g/dL (3.5-5.2); Alkaline Phosphatase 71 U/L (40-130); Anion Gap 14.4 (5-19); Aspartate Amino Transferase 17 U/L (0-40); Blood Urea Nitrogen 18 mg/dL (8-23); Calcium 9.2 mg/dL (8.5-10.5); Carbon Dioxide 27 mmol/L (22-29); Chloride 104 mmol/L (98-107); Glucose 98 mg/dL (65-115); Osmolality Calculated 296 mOsm/kg (285-295); Potassium 3.4 mmol/L (3.5-5.1); Sodium 142 mmol/L (136-145); Thyroid Stimulating Hormone 3.51 uIU/mL (0.27-4.20); Total Bilirubin 0.2 mg/dL (0.15-1.2); Total Protein 5.8 g/dL (6.6-8.7)
[2023-12-19 03:20] VITALS: BP 132/72; PULSE 64; RESP 16; O2SAT 95
[2023-12-19 03:23] LABS: Add Urine Microscopic? NO; Charge for UA Resulting for Rev
[2023-12-19 03:25] LABS: Urine Color Light yellow (Yellow)
[2023-12-19 03:26] LABS: Bilirubin Urine Neg (Negative); Blood Urine Neg (Negative); Glucose Urine UA Norm (Normal); Ketones Urine Negative (Negative); Leukocyte Esterase Urine Negative (Negative); Nitrate Urine Negative (Negative); Protein Urine Neg (Negative); Specific Gravity, Urine 1.015 (1.005-1.030); Urine Appearance Clear (CLEAR); Urobilinogen Urine Neg (Negative); pH Urine 6 (5-7)
[2023-12-19 03:33] LABS: Amphetamines Screen Urine Negative (Negative); Barbiturates Screen Urine Negative (Negative); Benzodiazepines Screen Urine Negative (Negative); Cocaine Screen Urine Negative (Negative); Opiate Screen Urine Negative (Negative); PCP Screen Urine Negative (Negative); THC Screen Urine Positive (Negative)
[2023-12-19 04:13] VITALS: BP 128/56; PULSE 62; RESP 16; O2SAT 96
--- NOTE | 2023-12-19 04:21 | ECG_ITS ---
[facility] Test Date: 2023-12-19 Pat Name: Kevin Griffin Department: Room: Gender: Male [employer]: : 1960 Requested By: Elton Mccullough Order Number: [id number] Ashley MD: Guido Saeed M.D. Measurements Intervals [place] Rate: 61 P: 72 MS: 165 QRS: 86 QRSD: 168 T: 45 QT: 469 QTc: 476 Interpretive Statements SINUS RHYTHM INDETERMINATE AXIS RIGHT BUNDLE BRANCH BLOCK [120+ ms QRS DURATION, UPRIGHT V1, 40+ ms S IN I/aVL/V4/V5/V6] Compared to ECG 08/10/2022 01:16:58 Ventricular premature complex(es) no longer present Electronically Signed On 12-19-2023 18:34:59 [facility] [place] by Guido Saeed M.D. [email or web address]
[2023-12-19 04:55] VITALS: BP 128/56; PULSE 62; RESP 16; O2SAT 96
== END 2023-12-19 05:05 | disposition home or self-care (01) ==
PROVIDERS: Emergency Provider Emergency Medicine; PCP Nurse Practitioner Family
DX: I10 Essential (primary) hypertension (principal); I69.30 Unspecified sequelae of cerebral infarction; Z79.02 Long term (current) use of antithrombotics/antiplatelets; Z79.82 Long term (current) use of aspirin; Z72.0 Tobacco use
CPT/HCPCS: 36416; 70450; 71045; 80053; 80306; 81003; 82962; 83735; 84443; 84484; 85025; 85610; 86140; 93005; 99285

== ENCOUNTER → 2024-04-30 14:10 | Outpatient (BNVA) | payer MEDICARE, SELFPAY | PROVIDERS: PCP Nurse Practitioner Family; Visit Provider Internal Medicine Cardiovascular Disease | DX: I25.110 Atherosclerotic heart disease of native coronary artery with unstable angina pectoris (principal); I10 Essential (primary) hypertension; E78.5 Hyperlipidemia, unspecified; I69.30 Unspecified sequelae of cerebral infarction; Z72.0 Tobacco use | CPT/HCPCS: 99214 ==

== ENCOUNTER 2024-11-03 14:13 | Emergency (ER) | payer MEDICARE, SELFPAY ==
[2024-11-03 14:55] VITALS: BP 132/80; PULSE 69; RESP 16; TEMP 36.8; O2SAT 97
[2024-11-03 15:01] LABS: Basophils % 0.3 %; Eosinophils % 0.5 %; Hematocrit 45.1 % (37-53); Lymphocytes # 1.7 10^3/uL (0.8-4.8); Lymphocytes % 22.2 %; Mean Corpuscular HGB Conc 32.8 g/dL (30-55); Mean Corpuscular Hemoglobin 29.6 pg (27-33); Mean Corpuscular Volume 90.2 fl (82-101); Mean Platelet Volume 10.3 fL (7.4-10.4); Neutrophils # 4.78 10^3/uL (1.8-7.7); Neutrophils % 63.7 %; Nucleated Red Blood Cells % 0 %; Platelet Count 218 10^3/cmm (157-399); Red Cell Distribution Width 13.2 % (12.1-15.1); White Blood Count 7.51 10^3/uL (3.29-11.43)
[2024-11-03 15:17] LABS: Alanine Aminotransferase 21 U/L (0-41); Albumin Level 3.4 g/dL (3.5-5.2); Alkaline Phosphatase 50 U/L (40-130); Anion Gap 15.7 (5-19); Aspartate Amino Transferase 23 U/L (0-40); Blood Urea Nitrogen 18 mg/dL (8-23); Calcium 8.5 mg/dL (8.5-10.5); Carbon Dioxide 25 mmol/L (22-29); Chloride 102 mmol/L (98-107); Creatinine Clr Calc Pharmacy 82.2319; Globulin 2.7 g/dL (1.3-4.6); Glomerular Filtration Rate 84.7 mL/min (90-130); Glucose 92 mg/dL (65-115); Lipase 26 U/L (13-60); Osmolality Calculated 290 mOsm/kg (285-295); Potassium 3.7 mmol/L (3.5-5.1); Sodium 139 mmol/L (136-145); Total Bilirubin 0.2 mg/dL (0.15-1.2); Total Protein 6.1 g/dL (6.6-8.7)
--- NOTE | 2024-11-04 16:42 | PC.NURSE ---
Spoke with pt regarding his LWBS yesterday. Pt states he is still feeling pretty shitty but he thinks he is getting better. I told him he is always welcome to return to the ER and he thanked me and verbalized understanding.
== END 2024-11-03 19:08 | disposition left against medical advice (07) ==
PROVIDERS: Emergency Medicine; Emergency Provider Family Medicine; PCP Nurse Practitioner Family
DX: Z53.21 Procedure and treatment not carried out due to patient leaving prior to being seen by health care provider (principal)
CPT/HCPCS: 36415; 80053; 83690; 85025